=== PATIENT | female | born 1985 | race Caucasian/White ===

== ENCOUNTER 2022-09-12 00:13 | Emergency (ER) | payer MEDICAID, SELFPAY ==
--- NOTE | ~2022-09-12 | XR_ITS ---
EXAMINATION: XR CHEST CLINICAL INFORMATION: Cough COMPARISON: 02/03/2008 TECHNIQUE: Frontal view of the chest was obtained. FINDINGS: No significant abnormality is noted involving the heart, lungs, mediastinum, bony thorax or soft tissues. XR/XR chest 1V IMPRESSION: Unremarkable examination.
[2022-09-12 00:16] VITALS: BP 106/72; PULSE 78; RESP 22; TEMP 36.3; O2SAT 99; BMI 38.9
--- NOTE | 2022-09-12 00:23 | ECG_ITS ---
Test Reason : SOB Blood Pressure : / mmHG Vent. Rate : 064 BPM Atrial Rate : 064 BPM P-R Int : 164 ms QRS Dur : 084 ms QT Int : 398 ms P-R-T Axes : 040 031 015 degrees QTc Int : 410 ms Normal sinus rhythm with sinus arrhythmia Normal ECG No previous ECGs available Referred By: Generic ED Physician Electronically Signed By:AQUILINO JESUS MD
[2022-09-12 00:39] LABS: MANUAL DIFF FLAG NO
[2022-09-12 00:41] LABS: Basophils Percent Auto 0.4 % (0-2); Eosinophils Absolute Auto 0.3 X10*3/uL (0.0-0.4); Hematocrit 37.4 % (37.0-47.0); Imm Gran Abs Auto 0.03 X10*3/uL (0.00-0.03); Imm Gran Pct Auto 0.3 % (0.0-0.4); Lymphocytes Absolute Auto 3.1 X10*3/uL (1.2-4.9); Lymphocytes Percent Auto 27.6 % (20-40); Mean Corpuscular HGB Conc 34.8 g/dl (31.0-35.0); Mean Corpuscular Volume 83.5 fL (80.0-98.0); Monocytes Absolute Auto 0.4 X10*3/uL (0.1-1.2); Monocytes Percent Auto 3.8 % (2-11); Neutrophils Absolute Auto 7.3 x10*3/uL (2.0-8.3); Neutrophils Percent Auto 64.9 % (45-73); Platelet Count 280 X10*3/uL (160-400); Red Blood Count 4.48 X10*6/uL (4.20-5.50); Red Cell Distribution Width 12.8 % (11.0-16.0); White Blood Count 11.2 X10*3/uL (4.8-10.8)
[2022-09-12 00:56] LABS: Anion Gap 17 (12-20); Blood Urea Nitrogen 10 mg/dL (9-16); Calcium 9.2 mg/dL (8.4-10.2); Carbon Dioxide 23 mmol/L (22-29); Chloride 105 mmol/L (96-108); Creatinine Clr Calc Pharmacy 120.4; Estimated Glomerular Filt Rate > 60; Glucose Random 105 mg/dL (60-115); Potassium 3.6 mmol/L (3.3-5.1); Sodium 141 mmol/L (135-145)
[2022-09-12 01:00] LABS: COVID-19 Test Negative (Negative); IDNOW Serial# 16C4AD1C
[2022-09-12 01:02] LABS: B Type Natriuretic Peptide < 10 pg/mL (<100); Troponin-I High Sensitivity < 3.5 ng/L (<3.5-17.0)
--- NOTE | 2022-09-12 03:48 | ED_ITS ---
HPI - URI/Sore Throat General Chief Complaint: Upper Respiratory Symptoms Stated Complaint: Cough Time Seen by Provider: 09/12/22 03:47 Source: patient Mode of arrival: ambulatory Limitations: no limitations History of Present Illness HPI Narrative: Patient coughing for last 3- 4 days getting worse now no shortness of breath no fever or chills patient does have history of asthma. Patient cough is getting worse with mucoid phlegm patient is a smoker Related Data Previous Rx's Medication Instructions Recorded azithromycin 250 mg tablet 250 mg PO DAILY 4 days #4 tabs 09/12/22 (Zithromax) benzonatate 200 mg capsule 200 mg PO TID PRN cough #30 caps 09/12/22 prednisone 20 mg tablet 40 mg PO DAILY #10 tabs 09/12/22 Allergies Allergy/AdvReac Type Severity Reaction Status Date / Time No Known Allergies Allergy Unverified 09/12/22 00:16 [No Known Allergies*] Review of Systems Review of Systems: Yes all other systems are reviewed and are negative [facility] Social History Social History Advance Directives: No Advance Directives Information Provided: Yes Patient : No Physical Exam Vital Signs: Vital Signs: Last Vital Signs Temp 97.3 F 09/12/22 00:16 Pulse 61 09/12/22 04:00 Resp 22 H 09/12/22 00:16 BP 112/58 L 09/12/22 04:00 Pulse Ox 98 09/12/22 04:00 O2 Del Method 09/12/22 04:00 BMI result Body Mass Index 38.9 Appearance: Alert. Oriented X3. No acute distress. ENT: Pharynx normal. Oral Mucosa moist no erythema or exudate Neck: Normal inspection. Neck supple. CVS: Normal heart rate and rhythm. Pulses normal. Respiratory: No respiratory distress. Equal air entry bilateral, prolonged expiration Abdomen: Soft and nontender. Bowel sounds are present, no mass palpable, no CVA tenderness Skin: Skin warm and dry. Normal skin color. Normal skin turgor. Extremities: No lower extremity edema. No calf tenderness Neuro: Oriented X 3. MDM - URI/Sore Throat MDM Narrative Medical decision making narrative: Patient with dry cough and sore throat will do the strep test and check for RSV as patient 's grandson positive RSV Lab Data Attestation: I reviewed the patient's lab results. Result diagrams: 09/12/22 00:33 09/12/22 00:33 Labs: Lab Results 09/12/22 09/12/22 09/12/22 Range/Units 00:33 00:33 00:33 WBC 11.2 H (4.8-10.8) X10*3/uL RBC 4.48 (4.20-5.50) X10*6/uL Hgb 13.0 (12.0-16.0) g/dl Hct 37.4 (37.0-47.0) % MCV 83.5 (80.0-98.0) fL MCH 29.0 (27.0-33.0) pg MCHC 34.8 (31.0-35.0) g/dl RDW 12.8 (11.0-16.0) % Plt Count 280 (160-400) X10*3/uL MPV 10.0 (9.4-12.3) fL Immature Gran % (Auto) 0.3 (0.0-0.4) % Neut % (Auto) 64.9 (45-73) % Lymph % (Auto) 27.6 (20-40) % [place] % (Auto) 3.8 (2-11) % Eos % (Auto) 3.0 (0-4) % Baso % (Auto) 0.4 (0-2) % Lymph # (Auto) 3.1 (1.2-4.9) X10*3/uL [place] # (Auto) 0.4 (0.1-1.2) X10*3/uL Eos # (Auto) 0.3 (0.0-0.4) X10*3/uL Baso # (Auto) 0.0 (0.0-0.2) X10*3/uL Abs Immat Gran (auto) 0.03 (0.00-0.03) X10*3/uL Absolute Neuts (auto) 7.3 (2.0-8.3) x10*3/uL Absolute Nucleated RBC 0.000 (0.0-0.012) X10*3/uL Nucleated RBC % (auto) 0.0 (0.0-0.2) /100WBC Sodium 141 (135-145) mmol/L Potassium 3.6 (3.3-5.1) mmol/L Chloride 105 (96-108) mmol/L Carbon Dioxide 23 (22-29) mmol/L Anion Gap 17 (12-20) BUN 10 (9-16) mg/dL Creatinine 0.70 (0.5-1.4) mg/dL Estim Creat Clear Calc 120.4 Estimated GFR > 60 Random Glucose 105 (60-115) mg/dL Calcium 9.2 (8.4-10.2) mg/dL Troponin I High Sens < 3.5 (<3.5-17.0) ng/L B-Natriuretic Peptide < 10 (<100) pg/mL COVID-19 (CEDRIC) (Negative) COVID-19 Clin Com 09/12/22 Range/Units 00:33 WBC (4.8-10.8) X10*3/uL RBC (4.20-5.50) X10*6/uL Hgb (12.0-16.0) g/dl Hct (37.0-47.0) % MCV (80.0-98.0) fL MCH (27.0-33.0) pg MCHC (31.0-35.0) g/dl RDW (11.0-16.0) % Plt Count (160-400) X10*3/uL MPV (9.4-12.3) fL Immature Gran % (Auto) (0.0-0.4) % Neut % (Auto) (45-73) % Lymph % (Auto) (20-40) % [place] % (Auto) (2-11) % Eos % (Auto) (0-4) % Baso % (Auto) (0-2) % Lymph # (Auto) (1.2-4.9) X10*3/uL [place] # (Auto) (0.1-1.2) X10*3/uL Eos # (Auto) (0.0-0.4) X10*3/uL Baso # (Auto) (0.0-0.2) X10*3/uL Abs Immat Gran (auto) (0.00-0.03) X10*3/uL Absolute Neuts (auto) (2.0-8.3) x10*3/uL Absolute Nucleated RBC (0.0-0.012) X10*3/uL Nucleated RBC % (auto) (0.0-0.2) /100WBC Sodium (135-145) mmol/L Potassium (3.3-5.1) mmol/L Chloride (96-108) mmol/L Carbon Dioxide (22-29) mmol/L Anion Gap (12-20) BUN (9-16) mg/dL Creatinine (0.5-1.4) mg/dL Estim Creat Clear Calc Estimated GFR Random Glucose (60-115) mg/dL Calcium (8.4-10.2) mg/dL Troponin I High Sens (<3.5-17.0) ng/L B-Natriuretic Peptide (<100) pg/mL COVID-19 (CEDRIC) Negative (Negative) COVID-19 Clin Com See Note Discharge Plan Discharge Clinical Impression: Acute bronchitis Patient Disposition: Home, Self-Care Instructions: Acute Bronchitis (ED) Additional Instructions: Drink plenty of fluids Continue her albuterol inhaler and nebulizing treatment every 4-6 hours as needed Antibiotic as prescribed Cough drops as prescribed Follow with PCP if not better Prescriptions: New benzonatate 200 mg capsule 200 mg PO TID PRN (Reason: cough) Qty: 30 0RF prednisone 20 mg tablet 40 mg PO DAILY Qty: 10 0RF azithromycin [Zithromax] 250 mg tablet 250 mg PO DAILY 4 Days Qty: 4 0RF Rx Instructions: start on day 2 of therapy
[2022-09-12 04:00] VITALS: BP 112/58; PULSE 61; O2SAT 98
--- NOTE | 2022-09-12 05:41 | PC.NURSE ---
pt a&o, no respiratory distress or chest pain. respiratory treatment ordered.
[2022-09-12] MEDS: Albuterol/Iprat 2.5/0.5MG 3 ML AMPUL.NEB INHALE (05:52)
[2022-09-12] MEDS: Benzonatate 100 MG CAPSULE 200 MG PO (06:12)
--- NOTE | 2022-09-12 06:14 | PC.NURSE ---
medicated per Mar.
[2022-09-12] MEDS: predniSONE 20 MG TABLET 40 MG PO (06:22)
[2022-09-12] MEDS: Azithromycin 500 MG TABLET PO (06:23)
--- NOTE | 2022-09-12 06:29 | PC.NURSE ---
medicated per Mar.
[2022-09-12 06:30] VITALS: O2SAT 97
--- NOTE | 2022-09-12 06:31 | PC.NURSE ---
No sign of respiratory distress. reviewed discharge instructions with pt. Pt verbalized understanding.
== END 2022-09-12 06:31 | disposition home or self-care (01) ==
PROVIDERS: Emergency Provider Internal Medicine
DX: J20.9 Acute bronchitis, unspecified (principal); F17.200 Nicotine dependence, unspecified, uncomplicated; Z20.822 Contact with and (suspected) exposure to COVID-19
CPT/HCPCS: 36415; 71045; 80048; 83880; 84484; 85025; 87635; 93005; 94640; 99284; 99285

== ENCOUNTER 2024-05-06 10:44 | Emergency (ER) | payer MEDICAID, SELFPAY ==
--- NOTE | ~2024-05-06 | US_ITS ---
EXAMINATION: US VENOUS ULTRASOUND WITH DOPPLER LOWER EXTREMITY, LEFT CLINICAL INFORMATION: Calf pain and swelling COMPARISON: None available. TECHNIQUE: Ultrasound of the deep veins is performed from the hip to the calf with compression sonography and color and pulse Doppler assessment. Spectral analysis with color-flow imaging is performed. FINDINGS: There is normal venous compression and respiratory variation and augmented flow. The visualized common femoral vein, superficial femoral vein, profunda femoral vein, popliteal vein, and the trifurcation region shows no evidence of deep venous thrombosis. There is no significant popliteal fossa cyst. No focal soft tissue lesion in the medial calf. If the patient's symptoms persist, followup ultrasound in 5 days 7 days might be of value to exclude proximal propagation from a non-visualized calf vein. US/US venous duplex LE IMPRESSION: No DVT demonstrated in the left lower extremity.
--- NOTE | 2024-05-06 11:18 | ED.GENADULT ---
HPI - General Adult General Chief complaint: General Medical Stated complaint: Bruising/pain L leg no injury, cyst R cheek Time Seen by Provider: 05/06/24 12:52 Source: patient Mode of arrival: ambulatory Limitations: no limitations History of Present Illness ED Provider: Rema Lee NP [facility] narrative: Patient is a 39-year-old female presenting to the emergency department with complaint of scattered bruises to left leg for the past month. Reports left lower leg calf pain and swelling. No warmth or erythema. Not on OCPs. Also complaining of a bump to right submandibular area for months. Painful with palpation. States was initially a pimple which she squeezed. Denies fever. Denies drainage. Does not have a PCP. MD complaint: leg bruising Onset (ago): month(s) Location: face, left and lower extremity Quality: aching Associated symptoms: denies other symptoms Treatments prior to arrival: none Related Data Previous Rx's ?Medication ?Instructions ?Recorded azithromycin 250 mg tablet 250 mg PO DAILY 4 days #4 tabs 09/12/22 (Zithromax) benzonatate 200 mg capsule 200 mg PO TID PRN cough #30 caps 09/12/22 prednisone 20 mg tablet 40 mg (2 x 20 mg) PO DAILY #10 tabs 09/12/22 Allergies Allergy/AdvReac Type Severity Reaction Status Date / Time No Known Allergies Allergy Verified 05/06/24 11:20 [No Known Allergies*] Review of Systems Review of Systems: As per HPI. Yes all other systems are reviewed and are negative Constitutional: Constitutional: Reports as per HPI [facility] Social History Social History Advance Directives: No Advance Directives Information Provided: Yes Physical Exam ED Vital Signs: Vital Signs - 24 hr 05/06/24 11:19 Temperature 97.8 F Pulse Rate 71 Respiratory Rate 16 Blood Pressure 117/70 Pulse Oximetry 98 Oxygen Delivery Method Room Air BMI result Body Mass Index 35.7 Vital signs have been reviewed and appear to be correct. Blood pressure normal. Heart rate normal. Respiratory rate normal. Temperature normal. Oxygen saturation normal. Const General: cooperative, healthy appearing and no acute distress Orientation/consciousness: oriented to person, oriented to place, oriented to time and patient oriented x3 Limitations: no limitations HENMT Head: Yes normocephalic and Yes atraumatic Ears: external ears normal General nose exam: Normal external nose present Face and sinus: Yes face symmetric Face images: 1. flesh colored firm, irregular area at edge of mandible, no fluctuance or erythema Mouth: oropharynx normal and moist mucous membranes Throat: Yes uvula midline Eyes Pupils: Equal, round and reactive pupils present Neck Neck: Yes normal visual inspection and Yes supple Resp Effort & Inspection: normal respiratory effort and able to speak in complete sentences Auscultation: clear to auscultation bilaterally Cardio Rate: regular rate Rhythm: regular rhythm Heart sounds: S1 normal heart sound present and S2 normal heart sound present GI Palpation (GI): Soft to palpation and nontender Auscultation: normoactive bowel sounds General: Yes no CVA tenderness Back/Spine/Pelvis Back: no CVA tenderness Skin General skin exam: elasticity normal and turgor normal Neuro General: oriented to person, oriented to place, oriented to time, patient oriented x3, moves all extremities, no focal motor deficits and CN's II-XI intact bilaterally Cranial nerves: Yes Equal, round and reactive pupils present Cognition (Neuro): normal cognition Extrem General: Yes full ROM, Yes capillary refill normal, Yes normal exam except as noted and Yes no pedal edema Left lower extremity: full ROM, normal capillary refill, lower leg Details: tenderness Location: of the posterior calf and localized swelling Location: of the proximal lower leg (mild); no erythema and no unusual warmth and foot Details: vascular exam Details: dorsalis pedis pulse present and posterior tibial pulse present Upper/lower leg/hip images: 1. bruise 2. bruise 3. bruise Psych Mental Status: mental status grossly normal Affect: normal affect Thought process: Normal thought process present Medical Decision Making Medical Decision Making MDM Narrative: Patient is a 39-year-old female presenting to the emergency department with complaint of scattered bruises to left leg for the past month. On exam patient is awake, A+Ox3, VS WNL, afebrile, normal neurological exam without focal deficits, physical exam findings as above. Given reported symptoms and physical exam findings, initial differential includes dvt, varicose veins, abscess, scar tissue. Labs unremarkable. Ultrasound notable for no evidence of DVT. My interpretation is in agreement with the radiologist's interpretation. Discussed with patient that areas of bruising are likely due to superficial varicose veins. Discussed with patient that area of concern on face is likely scar tissue related to her attempting to express a pustule. Advised patient to attempt to establish care with a primary care provider and resources provided. Will also refer to general surgery for evaluation of scar tissue to face. Return precautions discussed. Patient verbalized understanding of and agreement with plan. Differential Diagnosis Differential Diagnoses: The differential diagnosis associated with the presentation includes As per MDM. Lab Data [facility] Lab Attestation statement: I reviewed the patient's lab results. As per MDM. 05/06/24 11:30 05/06/24 11:30 Labs: Lab Results 05/06/24 Range/Units 11:30 WBC 8.7 (4.8-10.8) X10*3/uL RBC 4.89 (4.20-5.50) X10*6/uL Hgb 14.3 (12.0-16.0) g/dl Hct 41.2 (37.0-47.0) % MCV 84.3 (80.0-98.0) fL MCH 29.2 (27.0-33.0) pg MCHC 34.7 (31.0-35.0) g/dl RDW 12.9 (11.0-16.0) % Plt Count 281 (160-400) X10*3/uL MPV 10.0 (9.4-12.3) fL Immature Gran % (Auto) 0.2 (0.0-0.4) % Neut % (Auto) 69.3 (45-73) % Lymph % (Auto) 23.7 (20-40) % [place] % (Auto) 5.0 (2-11) % Eos % (Auto) 1.6 (0-4) % Baso % (Auto) 0.2 (0-2) % Lymph # (Auto) 2.1 (1.2-4.9) X10*3/uL [place] # (Auto) 0.4 (0.1-1.2) X10*3/uL Eos # (Auto) 0.1 (0.0-0.4) X10*3/uL Baso # (Auto) 0.0 (0.0-0.2) X10*3/uL Abs Immat Gran (auto) 0.02 (0.00-0.03) X10*3/uL Absolute Neuts (auto) 6.0 (2.0-8.3) x10*3/uL Absolute Nucleated RBC 0.000 (0.0-0.012) X10*3/uL Nucleated RBC % (auto) 0.0 (0.0-0.2) /100WBC PT 11.5 (11.1-13.3) SEC INR 0.9 (0.9-1.1) Sodium 140 (135-145) mmol/L Potassium 3.9 (3.3-5.1) mmol/L Chloride 106 (96-108) mmol/L Carbon Dioxide 29 (22-29) mmol/L Anion Gap 9 L (12-20) BUN 12 (9-16) mg/dL Creatinine 0.70 (0.5-1.4) mg/dL Estim Creat Clear Calc 112.6 Estimated GFR > 60 Random Glucose 89 (60-115) mg/dL Calcium 9.7 (8.4-10.2) mg/dL Total Bilirubin 0.3 (0.0-1.0) mg/dL AST 17 (5-31) U/L ALT 20 (0-31) U/L Alkaline Phosphatase 88 (39-117) U/L Total Protein 7.3 (6.5-8.0) g/dL Albumin 4.3 (3.5-5.0) g/dL Beta HCG, Quant < 2 mIU/mL Independent Interpretation I performed an independent interpretation of an: Ultrasound Interpretation: No evidence of DVT left lower extremity. Radiology Impression Discussion of test interpretation with radiology: I have reviewed the radiologist's reading. Radiologist Impression: US/US venous duplex LE LT IMPRESSION: No DVT demonstrated in the left lower extremity. External Record Review External record reviewed: Inpatient record, Office record and Outpatient record Discharge Plan Discharge Clinical Impression: Superficial bruising of lower leg Patient Disposition: Home, Self-Care Instructions: Contusion in Adults (ED) Additional Instructions: You were evaluated in the emergency department today for bruising and pain to your left lower leg. Your labs are reassuring. Your ultrasound did not show evidence of a blood clot in your leg. You should attempt to establish care with a primary care provider as soon as possible. Return to the emergency department if you develop increasing pain, fever, new redness or swelling to your leg, difficulty swallowing or any other concerning symptoms. Prescriptions: No Action benzonatate 200 mg capsule 200 mg PO TID PRN (Reason: cough) Qty: 30 0RF prednisone 20 mg tablet 40 mg PO DAILY Qty: 10 0RF azithromycin [Zithromax] 250 mg tablet 250 mg PO DAILY 4 Days Qty: 4 0RF Rx Instructions: start on day 2 of therapy Referrals: [facility] [Provider Group] Interventions: ED Discharge Assessment Last Done: 05/06/24 12:53 Print Language: Luxembourger
[2024-05-06 11:19] VITALS: BP 117/70; PULSE 71; RESP 16; TEMP 36.6; O2SAT 98; BMI 35.7
[2024-05-06 11:34] LABS: MANUAL DIFF FLAG NO
[2024-05-06 11:36] LABS: Basophils Percent Auto 0.2 % (0-2); Eosinophils Absolute Auto 0.1 X10*3/uL (0.0-0.4); Eosinophils Percent Auto 1.6 % (0-4); Hematocrit 41.2 % (37.0-47.0); Hemoglobin 14.3 g/dl (12.0-16.0); Imm Gran Abs Auto 0.02 X10*3/uL (0.00-0.03); Imm Gran Pct Auto 0.2 % (0.0-0.4); Lymphocytes Absolute Auto 2.1 X10*3/uL (1.2-4.9); Lymphocytes Percent Auto 23.7 % (20-40); Mean Corpuscular HGB Conc 34.7 g/dl (31.0-35.0); Mean Corpuscular Hemoglobin 29.2 pg (27.0-33.0); Mean Corpuscular Volume 84.3 fL (80.0-98.0); Monocytes Absolute Auto 0.4 X10*3/uL (0.1-1.2); Neutrophils Percent Auto 69.3 % (45-73); Platelet Count 281 X10*3/uL (160-400); Red Blood Count 4.89 X10*6/uL (4.20-5.50); Red Cell Distribution Width 12.9 % (11.0-16.0); White Blood Count 8.7 X10*3/uL (4.8-10.8)
[2024-05-06 11:47] LABS: INTERNATIONAL NORM RATIO 0.9 (0.9-1.1); Prothrombin Time 11.5 SEC (11.1-13.3)
[2024-05-06 11:53] LABS: Alanine Aminotransferase 20 U/L (0-31); Albumin Level 4.3 g/dL (3.5-5.0); Alkaline Phosphatase 88 U/L (39-117); Anion Gap 9 (12-20); Aspartate Amino Transferase 17 U/L (5-31); Bilirubin Total 0.3 mg/dL (0.0-1.0); Blood Urea Nitrogen 12 mg/dL (9-16); Calcium 9.7 mg/dL (8.4-10.2); Carbon Dioxide 29 mmol/L (22-29); Chloride 106 mmol/L (96-108); Creatinine Clr Calc Pharmacy 112.6; Estimated Glomerular Filt Rate > 60; Glucose Random 89 mg/dL (60-115); Potassium 3.9 mmol/L (3.3-5.1); Sodium 140 mmol/L (135-145); Total Protein 7.3 g/dL (6.5-8.0)
[2024-05-06 11:58] LABS: HCG Quantitative < 2 mIU/mL
[2024-05-06 12:53] VITALS: BP 117/70; PULSE 71; RESP 16; TEMP 36.6; O2SAT 98
== END 2024-05-06 13:03 | disposition home or self-care (01) ==
PROVIDERS: Registered Nurse Emergency; Emergency Provider Emergency Medicine Emergency Medical Services
DX: M79.662 Pain in left lower leg (principal); R58 Hemorrhage, not elsewhere classified; M79.89 Other specified soft tissue disorders
CPT/HCPCS: 36415; 80053; 84702; 85025; 85610; 93971; 99282; 99284

== ENCOUNTER 2024-09-02 11:54 | Emergency (ER) | payer MEDICAID, SELFPAY ==
[2024-09-02 12:34] VITALS: BP 126/57; PULSE 77; RESP 18; TEMP 36.7; O2SAT 97; BMI 31.1
--- NOTE | 2024-09-02 12:39 | ED_ITS ---
HPI - General Adult General Chief complaint: Upper Respiratory Symptoms Stated complaint: cough-daughter whooping cough+ Time Seen by Provider: 09/02/24 12:38 Source: patient Mode of arrival: ambulatory Limitations: no limitations History of Present Illness ED Provider: Reed Villarreal HPI narrative: 39 yold female with pmh of Asthma presents to the ED for coughing body aches nasal congestion since for couple of days. Patient states her daughter was diagnosed with whooping cough and now patient herself is sick. Patient states wheezing. Patient denies any shortness of breath or chest pain. Patient denies any leg swelling, calf pain, coughing up blood, recent long travel, recent surgery, history of blood clots, or any pleurisy. Related Data Previous Rx's ?Medication ?Instructions ?Recorded azithromycin 250 mg tablet 250 mg PO DAILY 4 days #4 tabs 09/12/22 (Zithromax) benzonatate 200 mg capsule 200 mg PO TID PRN cough #30 caps 09/12/22 prednisone 20 mg tablet 40 mg (2 x 20 mg) PO DAILY #10 tabs 09/12/22 albuterol sulfate 90 mcg/actuation 2 puff inhalation Q4-6H PRN 09/02/24 aerosol inhaler shortness of breath or wheezing #8.5 grams azithromycin 250 mg tablet See Rx Instructions PO .COMPLEX #6 09/02/24 tabs benzonatate 200 mg capsule 200 mg PO TID PRN cough 5 days #15 09/02/24 caps prednisone 20 mg tablet 40 mg (2 x 20 mg) PO DAILY 5 days 09/02/24 #10 tabs Allergies Allergy/AdvReac Type Severity Reaction Status Date / Time No Known Allergies Allergy Verified 09/02/24 12:35 [No Known Allergies*] Review of Systems Review of Systems: COughing, bodyaches, chills, nasal congestion Yes all other systems are reviewed and are negative PMFSH Social History Social History Advance Directives: No Physical Exam ED Vital Signs: Vital Signs - 24 hr 09/02/24 12:34 09/02/24 12:54 Temperature 98.0 F 98.0 F Pulse Rate 77 77 Respiratory Rate 18 18 Blood Pressure 126/57 L 126/57 L Pulse Oximetry 97 97 Oxygen Delivery Method Room Air BMI result Body Mass Index 31.1 Const General: cooperative, healthy appearing, comfortable, no acute distress, well developed, alert, awake and Physically active Orientation/consciousness: patient oriented x3 [facility] Head: Yes normal to inspection, Yes No palpable skull fracture present, Yes normocephalic and Yes atraumatic Ears: hearing grossly normal bilaterally, external ears normal, TM's normal bilaterally, TM normal on the right, TM normal on the left, EAC's normal, mastoids normal and no periauricular adenopathy Throat: Yes posterior oropharynx normal, Yes tonsils normal and Yes uvula midline Eyes General: appearance normal, both eyes and all related structures Neck Neck: Yes normal visual inspection, Yes full ROM, Yes no lymphadenopathy, Yes no meningeal signs, Yes trachea midline, Yes supple, No anterior neck swelling and No tender Chest Chest palpation & inspection: normal inspection of the chest and normal palpation of entire chest wall Resp Effort & Inspection: normal respiratory effort and able to speak in complete sentences Auscultation: wheezes expiratory wheezes (slight) Cardio Jugular venous distension: no JVD Heart sounds: S1 normal heart sound present and S2 normal heart sound present GI Inspection: Yes normal to inspection Palpation (GI): Soft to palpation, not firm, nontender, no guarding and not rigid General: No CVA tenderness and Yes no CVA tenderness Back/Spine/Pelvis Back: no CVA tenderness, No CVA tenderness and No back tenderness Skin General skin exam: no rashes or lesions noted, elasticity normal and turgor normal Neuro General: patient oriented x3, gait normal, tone normal, moves all extremities, Normal light touch and pain sensation, no meningeal signs, no focal motor deficits, CN's II-XI intact bilaterally and normal sensation to monofilament Extrem General: Yes normal to inspection, Yes full ROM and Yes capillary refill normal Psych Appearance: grossly normal, well kempt and not disheveled Medical Decision Making Medical Decision Making MDM Narrative: 39 yold female with asthma presents to the ED for coughing, shortness of breath, and wheezing. Patient states daughter was just diagnosed with whooping cough and now she is sick herself. Patient states no recent travel outside the country. Patient denies any pleurisy. Negative for any lower extremity swelling, pitting edema, calf tenderness. Lungs positive for slight wheezing. Will discharge with albuterol inhaler which patient ran out of and steroids with coughing medication antibiotics. According up-to-date pertussis should be treated with azithromycin. Not suspecting myocardial infarction, pericarditis, PE, hemothorax, pneumothorax, CHF, rib fractures, or respiratory distress. Patient is explained worrisome signs and informed to return to the ED immediately Differential Diagnosis Differential Diagnoses: The differential diagnosis associated with the presentation includes (Pneumonia, COVID, SARS, influenza, strep) Admission/Observation Consideration of admission/observation: Escalation of care including admission/observation considered Independent Historian Clinical information obtained from an independent historian. History obtained from or confirmed by: Other (Patient) External Record Review External record reviewed: Other (Prior visits) Prescription Management I considered prescription management with: Antibiotic and Other (Prednisone, albuterol, Tessalon Perles) Discharge Plan Discharge Clinical Impression: Bronchitis Patient Disposition: Home, Self-Care Instructions: Acute Bronchitis (ED) Additional Instructions: Recommend follow-up with primary care provider. Return to the ED immediately for any chest pain, shortness of breath, weakness, leg swelling, calf pain, coughing up blood, fever, chills, or any other concerning symptoms. Prescriptions: New prednisone 20 mg tablet 40 mg PO DAILY 5 Days Qty: 10 0RF azithromycin 250 mg tablet See Rx Instructions .ROUTE .COMPLEX Qty: 6 0RF Rx Instructions: For 250 mg dose pack: take 500 mg today (day 1), then 250 mg for 4 days (days 2-5) benzonatate 200 mg capsule 200 mg PO TID PRN (Reason: cough) 5 Days Qty: 15 0RF albuterol sulfate 90 mcg/actuation HFA aerosol inhaler 2 puff inhalation Q4-6H PRN (Reason: shortness of breath or wheezing) Qty: 8.5 0RF No Action benzonatate 200 mg capsule 200 mg PO TID PRN (Reason: cough) Qty: 30 0RF prednisone 20 mg tablet 40 mg PO DAILY Qty: 10 0RF azithromycin [Zithromax] 250 mg tablet 250 mg PO DAILY 4 Days Qty: 4 0RF Rx Instructions: start on day 2 of therapy Stand Alone Forms: Work/School Release Interventions: ED Discharge Assessment Last Done: 09/02/24 12:54 Discharge Date/Time: 09/02/24 12:54 Print Language: Yoruba
[2024-09-02 12:54] VITALS: BP 126/57; PULSE 77; RESP 18; TEMP 36.7; O2SAT 97
== END 2024-09-02 12:54 | disposition home or self-care (01) ==
PROVIDERS: Emergency Provider Emergency Medicine
DX: J40 Bronchitis, not specified as acute or chronic (principal)
CPT/HCPCS: 99282; 99283

== ENCOUNTER 2024-10-15 08:43 | Emergency (ER) | payer MEDICAID, SELFPAY ==
--- NOTE | ~2024-10-15 | XR_ITS ---
EXAMINATION: XR CHEST CLINICAL INFORMATION: cough COMPARISON: X-ray dated September 12, 2022 TECHNIQUE: 2 views of the chest were obtained. FINDINGS: No consolidation, pleural effusion or pneumothorax. Cardiomediastinal silhouette is normal. Osseous structures are intact. XR/XR chest 2V IMPRESSION: No acute airspace disease. Electronically signed by: Garcia Miles MD 10/15/2024 09:06 AM [facility]
[2024-10-15 08:45] VITALS: BP 120/91; PULSE 99; RESP 20; TEMP 36.3; O2SAT 95; BMI 35.3
[2024-10-15 09:52] LABS: Influenza A PCR NEGATIVE (Negative); Influenza B PCR NEGATIVE (Negative); Resp Syncy Virus RNA Qual PCR NEGATIVE (Negative); SARS COV2 PCR INHOUSE NEGATIVE (Negative)
--- NOTE | 2024-10-15 09:55 | ED.URI ---
HPI - URI/Sore Throat General Chief Complaint: Upper Respiratory Symptoms Stated Complaint: Bronchitis Time Seen by Provider: 10/15/24 09:04 Source: patient and RN notes reviewed Mode of arrival: ambulatory Limitations: no limitations History of Present Illness ED Provider: Karley Carpenter PA-C HPI Narrative: This is a 39-year-old female who presents emergency department with complaints of cough, congestion x 5 days. Patient reports that she has also had associated shortness of the breath and chest tightness. She states that the chest tightness worsens at night. She denies any chest pain, palpitations. No fevers or chills. No abdominal pain, nausea, vomiting or diarrhea. She had bronchitis last month and was treated with a course of antibiotics, and prednisone and states that her symptoms got better. She is a smoker, however states that since her symptoms, she has been smoking last, she has been smoking a pack of cigarettes per week. Denies any recent travel, surgery, hospitalizations. No hemoptysis. No history of blood clots, or cancer history. She is not on control. No other complaints or concerns at this time. MD elicited complaint: cough Exacerbating factors: nothing Relieving factors: nothing Associated symptoms: denies other symptoms Treatments prior to arrival: none Related Data Previous Rx's ?Medication ?Instructions ?Recorded azithromycin 250 mg tablet 250 mg PO DAILY 4 days #4 tabs 09/12/22 (Zithromax) benzonatate 200 mg capsule 200 mg PO TID PRN cough #30 caps 09/12/22 prednisone 20 mg tablet 40 mg (2 x 20 mg) PO DAILY #10 tabs 09/12/22 albuterol sulfate 90 mcg/actuation 2 puff inhalation Q4-6H PRN 09/02/24 aerosol inhaler shortness of breath or wheezing #8.5 grams azithromycin 250 mg tablet See Rx Instructions PO .COMPLEX #6 09/02/24 tabs benzonatate 200 mg capsule 200 mg PO TID PRN cough 5 days #15 09/02/24 caps prednisone 20 mg tablet 40 mg (2 x 20 mg) PO DAILY 5 days 09/02/24 #10 tabs doxycycline hyclate 100 mg capsule 100 mg PO BID 5 days #10 caps 10/15/24 prednisone 20 mg tablet 40 mg (2 x 20 mg) PO DAILY 5 days 10/15/24 #10 tabs Allergies Allergy/AdvReac Type Severity Reaction Status Date / Time No Known Allergies Allergy Verified 10/15/24 08:48 [No Known Allergies*] Review of Systems Review of Systems: Yes all other systems are reviewed and are negative Constitutional: Constitutional: Reports as per [facility] Social History Social History Advance Directives: No Advance Directives Information Provided: Yes Do you have a plan to hurt others: No Plan Physical Exam Vital Signs: Vital Signs: Last Vital Signs Temp 99.6 F 10/15/24 12:28 Pulse 81 10/15/24 12:28 Resp 18 10/15/24 12:28 BP 110/62 10/15/24 12:28 Pulse Ox 97 10/15/24 12:28 O2 Del Method Room Air 10/15/24 12:28 BMI result Body Mass Index 35.3 Const: General: cooperative, comfortable and no acute distress Orientation/consciousness: patient oriented x3 Limitations: no limitations HEENT: Head: Yes normal to inspection, Yes normocephalic and Yes atraumatic Ears: hearing grossly normal bilaterally General nose exam: Normal external nose present Face and sinus: Yes normal facial exam Mouth: Normal oral and palatal mucosa present, oropharynx normal and moist mucous membranes Throat: Yes posterior oropharynx normal Eyes: General: appearance normal, both eyes and all related structures Eyelids: Yes eyelids normal Conjunctivae: conjunctivae normal Sclerae: sclerae normal Pupils: Equal, round and reactive pupils present EOM: EOMs intact bilaterally Neck: Neck: Yes normal visual inspection, Yes full ROM and Yes no lymphadenopathy Lymphatic: no lymphadenopathy noted Chest: Chest palpation & inspection: normal inspection of the chest Resp: Other: Faint expiratory wheeze noted in the right lower base, otherwise lungs are clear to auscultation bilaterally. Effort & Inspection: normal respiratory effort, able to speak in complete sentences, not labored, no nasal flaring, no pursed lip breathing and no use of accessory muscles Cardio: Rate: regular rate Rhythm: regular rhythm Heart sounds: S1 normal heart sound present and S2 normal heart sound present GI: Inspection: Yes normal to inspection Skin: General skin exam: no rashes or lesions noted Trauma: no lacerations or abrasions Wounds: no wounds Neuro: General: patient oriented x3 and moves all extremities Cranial nerves: Yes Equal, round and reactive pupils present Extrem: Other: No calf tenderness, no pitting edema. General: Yes normal to inspection Right upper extremity: normal to inspection Left upper extremity: normal to inspection Right lower extremity: normal to inspection Left lower extremity: normal to inspection Medications Administered Discontinued Medications Generic Name Dose Route Start Last Admin Trade Name Regulo PRN Reason Stop Dose Admin Albuterol Sulfate 2.5 mg/ 5 mg 10/15/24 10:23 10/15/24 10:29 Albuterol Sulfate 2.5 mg INHALE 10/15/24 10:24 5 mg ONCE ONE Administration Medical Decision Making Medical Decision Making [facility] Narrative: This is a 39-year-old female, with a history of asthma, who presents emergency department with complaints of cough, shortness for breath and chest tightness. On arrival, vital signs within normal limits. She is speaking full sentences under no acute distress. Faint expiratory wheeze noted at the right lower base. She was a smoker. She is afebrile. She has had cold-like symptoms for the last 5 days. She was also reporting some shortness for breath upon exertion. She is not hypoxic or tachycardic. She has no history of PE. No recent travel, surgery, hospitalizations. No hemoptysis. No pleuritic chest pain to suggest PE. Differential diagnoses include URI, pneumonia, bronchitis. EKG was performed revealing normal sinus rhythm at a ventricular rate of 79 beats per minute, no ST elevation or depression. Viral swabs are negative. Chest x-ray does not show a pneumonia. Symptoms consistent with acute bronchitis. Will treat with a course of prednisone, and antibiotics. She was previously on azithromycin last month therefore we will try doxycycline. Stressed the urgency of following up with the primary care physician as she should be closely monitor to ensure resolution of her symptoms as well as management. Differential Diagnosis Differential Diagnoses: The differential diagnosis associated with the presentation includes See above Admission/Observation Consideration of admission/observation: Escalation of care including admission/observation considered Escalation of care including admission/observation considered however given workup today not warranted at this time. Lab Data [facility] Lab Attestation statement: I reviewed the patient's lab results. No leukocytosis, stable H&H, chemistry within normal limits. Troponin less than 2.7, viral swabs negative. 10/15/24 10:33 10/15/24 10:33 Labs: Lab Results 10/15/24 10/15/24 Range/Units 08:55 10:33 WBC 8.8 (4.8-10.8) X10*3/uL RBC 4.93 (4.20-5.50) X10*6/uL Hgb 14.5 (12.0-16.0) g/dl Hct 40.2 (37.0-47.0) % MCV 81.5 (80.0-98.0) fL MCH 29.4 (27.0-33.0) pg MCHC 36.1 H (31.0-35.0) g/dl RDW 12.6 (11.0-16.0) % Plt Count 270 (160-400) X10*3/uL MPV 9.9 (9.4-12.3) fL Immature Gran % (Auto) 0.3 (0.0-0.4) % Neut % (Auto) 61.8 (45-73) % Lymph % (Auto) 28.1 (20-40) % [place] % (Auto) 6.3 (2-11) % Eos % (Auto) 3.2 (0-4) % Baso % (Auto) 0.3 (0-2) % Lymph # (Auto) 2.5 (1.2-4.9) X10*3/uL [place] # (Auto) 0.6 (0.1-1.2) X10*3/uL Eos # (Auto) 0.3 (0.0-0.4) X10*3/uL Baso # (Auto) 0.0 (0.0-0.2) X10*3/uL Abs Immat Gran (auto) 0.03 (0.00-0.03) X10*3/uL Absolute Neuts (auto) 5.5 (2.0-8.3) x10*3/uL Absolute Nucleated RBC 0.000 (0.0-0.012) X10*3/uL Nucleated RBC % (auto) 0.0 (0.0-0.2) /100WBC Sodium 138 (135-145) mmol/L Potassium 3.4 (3.3-5.1) mmol/L Chloride 108 (96-108) mmol/L Carbon Dioxide 22 (22-29) mmol/L Anion Gap 11 L (12-20) BUN 10 (9-16) mg/dL Creatinine 0.68 (0.5-1.4) mg/dL Estim Creat Clear Calc 115.3 Estimated GFR > 60 Random Glucose 95 (60-115) mg/dL Calcium 9.3 (8.4-10.2) mg/dL Magnesium 2.1 (1.6-2.6) mg/dL Total Bilirubin 0.4 (0.0-1.0) mg/dL Direct Bilirubin 0.1 (0.0-0.5) mg/dL AST 30 (5-31) U/L ALT 37 H (0-31) U/L Alkaline Phosphatase 66 (39-117) U/L Troponin I High Sens < 2.7 (<3.5-17.0) ng/L B-Natriuretic Peptide < 10 (<100) pg/mL Total Protein 7.2 (6.5-8.0) g/dL Albumin 4.1 (3.5-5.0) g/dL Influenza Type A (PCR) NEGATIVE (Negative) Influenza Type B (PCR) NEGATIVE (Negative) RSV RNA Qual (PCR) NEGATIVE (Negative) SARS-CoV-2 RNA (RT-PCR) NEGATIVE (Negative) Independent Interpretation I performed an independent interpretation of an: EKG Interpretation: EKG normal sinus rhythm at a ventricular rate of 79 beats per minute, PA interval 166, QT QTC 376/431. Radiology Impression Discussion of test interpretation with radiology: I have reviewed the radiologist's reading. Radiologist Impression: XR/XR chest 2V IMPRESSION: No acute airspace disease. Electronically signed by: Garcia Miles MD 10/15/2024 09:06 AM [facility] Dictated By: Garcia Henriquez MD Discharge Plan Discharge Clinical Impression: Bronchitis Patient Disposition: Home, Self-Care Instructions: Acute Bronchitis (ED) Additional Instructions: You were seen in the emergency department due to cough. You have bronchitis. This often can be because of a virus however given your symptoms, we will treat you with antibiotics. Please take full course of antibiotics even if you are feeling better. Because you were just on azithromycin we are trying a different medication called doxycycline. Please take this as prescribed. Finish the entire course even if your symptoms improve. Take prednisone for the next 5 days as this will help decrease inflammation. Alternate between ibuprofen and Tylenol as needed for pain and symptoms. Use albuterol inhaler as needed for symptoms. You need to follow-up with the primary care physician. If any new or worsening symptoms occur including but not limited to chest pain, shortness for breath, worsening symptoms, please seek emergent care. Prescriptions: New doxycycline hyclate 100 mg capsule 100 mg PO BID 5 Days Qty: 10 0RF prednisone 20 mg tablet 40 mg PO DAILY 5 Days Qty: 10 0RF No Action benzonatate 200 mg capsule 200 mg PO TID PRN (Reason: cough) Qty: 30 0RF prednisone 20 mg tablet 40 mg PO DAILY Qty: 10 0RF azithromycin [Zithromax] 250 mg tablet 250 mg PO DAILY 4 Days Qty: 4 0RF Rx Instructions: start on day 2 of therapy prednisone 20 mg tablet 40 mg PO DAILY 5 Days Qty: 10 0RF azithromycin 250 mg tablet See Rx Instructions .ROUTE .COMPLEX Qty: 6 0RF Rx Instructions: For 250 mg dose pack: take 500 mg today (day 1), then 250 mg for 4 days (days 2-5) benzonatate 200 mg capsule 200 mg PO TID PRN (Reason: cough) 5 Days Qty: 15 0RF albuterol sulfate 90 mcg/actuation HFA aerosol inhaler 2 puff inhalation Q4-6H PRN (Reason: shortness of breath or wheezing) Qty: 8.5 0RF Referrals: [facility] [Physician] - Interventions: ED Discharge Assessment Last Done: 10/15/24 12:28 Discharge Date/Time: 10/15/24 12:29 Print Language: Tajik
--- NOTE | 2024-10-15 10:07 | ECG_ITS ---
Test Reason : SOB Blood Pressure : / mmHG Vent. Rate : 079 BPM Atrial Rate : 079 BPM P-R Int : 166 ms QRS Dur : 084 ms QT Int : 376 ms P-R-T Axes : 048 033 015 degrees QTc Int : 431 ms Normal sinus rhythm Normal ECG When compared with ECG of 12-SEP-2022 00:25, No significant change was found Referred By: Karley Carpenter Electronically Signed By:LAKSHMI BLEDSOE MD
[2024-10-15 10:24] VITALS: PULSE 92; O2SAT 96
[2024-10-15] MEDS: Albuterol Sulfate 2.5 MG, Albuterol Sulfate (0.083%) 2.5 MG 5 MG INHALE (10:29)
[2024-10-15 10:39] LABS: MANUAL DIFF FLAG NO
[2024-10-15 10:42] LABS: Basophils Percent Auto 0.3 % (0-2); Eosinophils Absolute Auto 0.3 X10*3/uL (0.0-0.4); Eosinophils Percent Auto 3.2 % (0-4); Hematocrit 40.2 % (37.0-47.0); Hemoglobin 14.5 g/dl (12.0-16.0); Imm Gran Abs Auto 0.03 X10*3/uL (0.00-0.03); Imm Gran Pct Auto 0.3 % (0.0-0.4); Lymphocytes Absolute Auto 2.5 X10*3/uL (1.2-4.9); Lymphocytes Percent Auto 28.1 % (20-40); Mean Corpuscular HGB Conc 36.1 g/dl (31.0-35.0); Mean Corpuscular Hemoglobin 29.4 pg (27.0-33.0); Mean Corpuscular Volume 81.5 fL (80.0-98.0); Mean Platelet Volume 9.9 fL (9.4-12.3); Monocytes Absolute Auto 0.6 X10*3/uL (0.1-1.2); Monocytes Percent Auto 6.3 % (2-11); Neutrophils Absolute Auto 5.5 x10*3/uL (2.0-8.3); Neutrophils Percent Auto 61.8 % (45-73); Platelet Count 270 X10*3/uL (160-400); Red Blood Count 4.93 X10*6/uL (4.20-5.50); Red Cell Distribution Width 12.6 % (11.0-16.0); White Blood Count 8.8 X10*3/uL (4.8-10.8)
[2024-10-15 10:56] LABS: Alanine Aminotransferase 37 U/L (0-31); Albumin Level 4.1 g/dL (3.5-5.0); Alkaline Phosphatase 66 U/L (39-117); Anion Gap 11 (12-20); Aspartate Amino Transferase 30 U/L (5-31); Bilirubin Direct 0.1 mg/dL (0.0-0.5); Bilirubin Total 0.4 mg/dL (0.0-1.0); Blood Urea Nitrogen 10 mg/dL (9-16); Calcium 9.3 mg/dL (8.4-10.2); Carbon Dioxide 22 mmol/L (22-29); Chloride 108 mmol/L (96-108); Creatinine Clr Calc Pharmacy 115.3; Estimated Glomerular Filt Rate > 60; Glucose Random 95 mg/dL (60-115); Magnesium 2.1 mg/dL (1.6-2.6); Potassium 3.4 mmol/L (3.3-5.1); Sodium 138 mmol/L (135-145); Total Protein 7.2 g/dL (6.5-8.0)
[2024-10-15 11:01] LABS: B Type Natriuretic Peptide < 10 pg/mL (<100)
[2024-10-15 11:09] LABS: Troponin-I High Sensitivity < 2.7 ng/L (<3.5-17.0)
[2024-10-15 11:24] VITALS: BP 101/52; PULSE 68; RESP 14; TEMP 37.3; O2SAT 97
[2024-10-15 12:27] VITALS: BP 110/62; PULSE 81; RESP 18; TEMP 37.6; O2SAT 97
[2024-10-15 12:28] VITALS: BP 110/62; PULSE 81; RESP 18; TEMP 37.6; O2SAT 97
== END 2024-10-15 12:29 | disposition home or self-care (01) ==
PROVIDERS: Physician Assistant Medical; Emergency Provider Emergency Medicine
DX: J40 Bronchitis, not specified as acute or chronic (principal); R05.9 Cough, unspecified; R06.02 Shortness of breath; R09.81 Nasal congestion; R07.89 Other chest pain; Z79.899 Other long term (current) drug therapy; Z03.818 Encounter for observation for suspected exposure to other biological agents ruled out
CPT/HCPCS: 0241U; 36415; 71046; 80048; 80076; 83735; 83880; 84484; 85025; 93005; 94640; 94664; 99284

== ENCOUNTER → 2024-10-15 08:49 | Outpatient (BNV) | payer MEDICAID, SELFPAY | PROVIDERS: Emergency Provider Emergency Medicine; Visit Provider Radiology Diagnostic Radiology | DX: R05.9 Cough, unspecified (principal) | CPT/HCPCS: 71046 ==

== ENCOUNTER → 2024-10-15 10:07 | Outpatient (BNV) | payer MEDICAID, SELFPAY | PROVIDERS: Emergency Provider Emergency Medicine; Visit Provider Internal Medicine Cardiovascular Disease | DX: R06.02 Shortness of breath (principal) | CPT/HCPCS: 93010 ==

== ENCOUNTER 2024-12-11 14:19 | Emergency (ER) | payer MEDICAID, SELFPAY ==
[2024-12-11 14:35] VITALS: BP 108/63; PULSE 88; RESP 18; TEMP 36.8; O2SAT 97; BMI 37.9
[2024-12-11 20:39] VITALS: BP 120/74; PULSE 88; RESP 18; TEMP 36.8; O2SAT 100
--- NOTE | 2024-12-11 22:27 | ED_ITS ---
HPI - Eye Problem General Chief complaint: Eye Problems Stated complaint: eye redness, swelling Time Seen by Provider: 12/11/24 21:22 Source: patient Mode of arrival: ambulatory Limitations: no limitations History of Present Illness ED Provider: HPI Narrative: Patient was healthy noticed pain in the right eye for last 1 week along with swelling of the right eyelid no vision loss feels slightly blurred no scotomas no prior history in the past Related Data Previous Rx's ?Medication ?Instructions ?Recorded azithromycin 250 mg tablet 250 mg PO DAILY 4 days #4 tabs 09/12/22 (Zithromax) benzonatate 200 mg capsule 200 mg PO TID PRN cough #30 caps 09/12/22 prednisone 20 mg tablet 40 mg (2 x 20 mg) PO DAILY #10 tabs 09/12/22 albuterol sulfate 90 mcg/actuation 2 puff inhalation Q4-6H PRN 09/02/24 aerosol inhaler shortness of breath or wheezing #8.5 grams azithromycin 250 mg tablet See Rx Instructions PO .COMPLEX #6 09/02/24 tabs benzonatate 200 mg capsule 200 mg PO TID PRN cough 5 days #15 09/02/24 caps prednisone 20 mg tablet 40 mg (2 x 20 mg) PO DAILY 5 days 09/02/24 #10 tabs doxycycline hyclate 100 mg capsule 100 mg PO BID 5 days #10 caps 10/15/24 prednisone 20 mg tablet 40 mg (2 x 20 mg) PO DAILY 5 days 10/15/24 #10 tabs erythromycin 5 mg/gram (0.5 %) eye 0.5 inch ophthalmic (eye) BID #3.5 12/11/24 ointment grams timolol 0.5 % eye drops 1 drp ophthalmic (eye) BID #5 mL 12/11/24 tobramycin 0.3 % eye drops 1 drp ophthalmic (eye) Q4H #5 mL 12/11/24 Allergies Allergy/AdvReac Type Severity Reaction Status Date / Time No Known Allergies Allergy Verified 12/11/24 14:37 [No Known Allergies*] Review of Systems Review of Systems: Yes all other systems are reviewed and are negative PMFSH Social History Social History Smoked in Last 30 Days: No Use of substances other than those prescribed or required for medical reasons: No Advance Directives: No Advance Directives Information Provided: No Physical Exam Vital Signs: Vital Signs: Last Vital Signs Temp 98.2 F 12/11/24 20:39 Pulse 88 12/11/24 20:39 Resp 18 12/11/24 20:39 BP 120/74 12/11/24 20:39 Pulse Ox 100 12/11/24 20:39 O2 Del Method Room Air 12/11/24 20:39 BMI result Body Mass Index 37.9 Appearance: Alert. Oriented X3. No acute distress. Eyes: PERRLA, No Nystagmus right eye IOP 31 left eye IOP 21 inflamed right upper eyelid inflamed conjunctiva both scleral and palpebral anterior chamber is normal fundus benign left eye normal ENT: Pharynx normal. Oral Mucosa moist Neck: Normal inspection. Neck supple. CVS: Normal heart rate and rhythm. Pulses normal. Respiratory: No respiratory distress. Equal air entry bilateral, Abdomen: Soft and nontender. Bowel sounds are present, Skin: Skin warm and dry. Normal skin color. Normal skin turgor. Extremities: No lower extremity edema. No calf tenderness Neuro: Oriented X 3. Medical Decision Making Medical Decision Making [facility] Narrative: Patient with subacute right narrow angle glaucoma pressure is 30 in 1 in the right eye and 21 in the left eye will start patient on timolol eye drops advised to follow up with analytical manager Patient does not have any significant vision loss Also has blepharitis will give erythromycin ointment and tobramycin eye drops Discharge Plan Discharge Clinical Impression: Blepharitis of eyelid of right eye, Glaucoma Patient Disposition: Home, Self-Care Instructions: Blepharitis (ED), Glaucoma (ED) Additional Instructions: You have inflammation of the right eyelid hair follicle apply erythromycin ointment twice a day at the margin of the eyelid Tobramycin eye drops 2 drops 4 times a day Also you have elevated pressure in the eye Started using timolol eyedrops 1 drop in each eye twice daily You need to follow up with analytical manager Prescriptions: New timolol 0.5 % drops 1 drp ophthalmic (eye) BID Qty: 5 0RF tobramycin 0.3 % drops 1 drp ophthalmic (eye) Q4H Qty: 5 0RF erythromycin 5 mg/gram (0.5 %) ointment 0.5 inch ophthalmic (eye) BID Qty: 3.5 0RF No Action benzonatate 200 mg capsule 200 mg PO TID PRN (Reason: cough) Qty: 30 0RF prednisone 20 mg tablet 40 mg PO DAILY Qty: 10 0RF azithromycin [Zithromax] 250 mg tablet 250 mg PO DAILY 4 Days Qty: 4 0RF Rx Instructions: start on day 2 of therapy doxycycline hyclate 100 mg capsule 100 mg PO BID 5 Days Qty: 10 0RF prednisone 20 mg tablet 40 mg PO DAILY 5 Days Qty: 10 0RF prednisone 20 mg tablet 40 mg PO DAILY 5 Days Qty: 10 0RF azithromycin 250 mg tablet See Rx Instructions .ROUTE .COMPLEX Qty: 6 0RF Rx Instructions: For 250 mg dose pack: take 500 mg today (day 1), then 250 mg for 4 days (days 2-5) benzonatate 200 mg capsule 200 mg PO TID PRN (Reason: cough) 5 Days Qty: 15 0RF albuterol sulfate 90 mcg/actuation HFA aerosol inhaler 2 puff inhalation Q4-6H PRN (Reason: shortness of breath or wheezing) Qty: 8.5 0RF Referrals: Jeramie Palma [Physician] - 3 days Print Language: Danish
[2024-12-11] MEDS: Tobramycin Sulfate 0.3% Sol Op 5 ML BTL 2 DROP EYE-RIGHT (22:47)
[2024-12-11] MEDS: Erythromycin Base 0.5% Oph Oin 1 GM TUBE 1 CM EYE-RIGHT (22:48)
[2024-12-11] MEDS: timoloL maleate 0.5 % Oph Sol 5 ML DRBTL 1 DROP EYE-BOTH (22:48)
[2024-12-11 22:50] VITALS: BP 114/57; PULSE 79; RESP 18; TEMP 36.8; O2SAT 98
== END 2024-12-11 23:07 | disposition home or self-care (01) ==
PROVIDERS: Emergency Provider Internal Medicine
DX: H01.001 Unspecified blepharitis right upper eyelid (principal); H40.9 Unspecified glaucoma; H57.11 Ocular pain, right eye
CPT/HCPCS: 99283; 99284

== ENCOUNTER 2025-05-11 09:51 | Emergency (ER) | payer MEDICAID, SELFPAY ==
--- NOTE | ~2025-05-11 | XR_ITS ---
EXAMINATION: XR CHEST CLINICAL INFORMATION: cough COMPARISON: October 15/2024. TECHNIQUE: 2 views of the chest were obtained. FINDINGS: No consolidation, pleural effusion or pneumothorax. Cardiomediastinal silhouette size is normal. Osseous structures are intact. XR/XR chest 2V IMPRESSION: No acute airspace disease. Stable chest. Electronically signed by: Garcia Miles MD 05/11/2025 10:50 AM EDT
[2025-05-11 10:22] VITALS: PULSE 84; RESP 14; TEMP 36.6; O2SAT 96; BMI 37.3
[2025-05-11 10:29] VITALS: BP 101/61; PULSE 89; RESP 16; TEMP 36.5; O2SAT 97; O2SAT 98
--- NOTE | 2025-05-11 10:39 | ED_ITS ---
HPI - General Adult General Chief complaint: Upper Respiratory Symptoms Stated complaint: Strep? Copd? Time Seen by Provider: 05/11/25 10:38 Source: patient Mode of arrival: ambulatory Limitations: no limitations History of Present Illness ED Provider: Pippa Giles PA-C HPI narrative: Patient is a 40 year old assigned female at with a history of bronchitis presenting to the emergency department today with nasal congestion, sore throat, and a cough. Patient states that last week her daughter was seen here and diagnosed with strep throat. Patient states that over the last couple of days she has had a cough, sinus congestion, and a sore throat. Patient denies any dizziness, lightheadedness, abdominal pain, nausea, vomiting, fever, chills, blurry vision, double vision, loss of vision, chest pain, difficulty breathing, shortness of breath, back pain, night sweats, pain with urination, increased urinary frequency, increased urinary urgency, blood in her urine or stool, synco pe or a near syncopal episode, recent trauma or falls, bowel incontinence, bladder incontinence, or any other complaints at this time. Onset (ago): day(s) (2) Relieving factors: none Exacerbating factors: none Associated symptoms: cough Treatments prior to arrival: none Related Data Previous Rx's ?Medication ?Instructions ?Recorded azithromycin 250 mg tablet 250 mg PO DAILY 4 days #4 tabs 09/12/22 (Zithromax) benzonatate 200 mg capsule 200 mg PO TID PRN cough #30 caps 09/12/22 prednisone 20 mg tablet 40 mg (2 x 20 mg) PO DAILY #10 tabs 09/12/22 albuterol sulfate 90 mcg/actuation 2 puff inhalation Q4-6H PRN 09/02/24 aerosol inhaler shortness of breath or wheezing #8.5 grams azithromycin 250 mg tablet See Rx Instructions PO .COMPLEX #6 09/02/24 tabs benzonatate 200 mg capsule 200 mg PO TID PRN cough 5 days #15 09/02/24 caps prednisone 20 mg tablet 40 mg (2 x 20 mg) PO DAILY 5 days 09/02/24 #10 tabs doxycycline hyclate 100 mg capsule 100 mg PO BID 5 days #10 caps 10/15/24 prednisone 20 mg tablet 40 mg (2 x 20 mg) PO DAILY 5 days 10/15/24 #10 tabs erythromycin 5 mg/gram (0.5 %) eye 0.5 inch ophthalmic (eye) BID #3.5 12/11/24 ointment grams timolol 0.5 % eye drops 1 drp ophthalmic (eye) BID #5 mL 12/11/24 tobramycin 0.3 % eye drops 1 drp ophthalmic (eye) Q4H #5 mL 12/11/24 doxycycline hyclate 100 mg tablet 100 mg PO BID 7 days #14 tabs 05/11/25 Allergies Allergy/AdvReac Type Severity Reaction Status Date / Time No Known Allergies Allergy Verified 05/11/25 10:28 [No Known Allergies*] Review of Systems Constitutional: Constitutional: Reports no additional constitutional complaints, Denies chills, Denies fever(s) and Denies night sweats Eyes: Eyes: Reports no additional eye complaints, Denies blurry vision, Denies change in vision, Denies diplopia, Denies eye discharge, Denies loss of vision and Denies eye pain ENT: Denies dizziness, Reports nasal congestion and Reports sore throat Cardiovascular: Cardiovascular: Reports no additional cardiovascular complaints, Denies chest pain, Denies lightheadedness, Denies Loss of Consciousness and Denies dyspnea Respiratory: Respiratory: Reports no additional respiratory complaints, Reports cough and Denies dyspnea Gastrointestinal: Gastrointestinal: Reports no additional gastrointestinal complaints, Denies abdominal pain, Denies melena, Denies hematochezia, Denies change in bowel habits and Denies change in stool character Genitourinary: Genitourinary: Denies hematuria, Denies urinary frequency, Denies dysuria, Denies urinary incontinence, Denies urinary hesitancy and Denies urinary urgency Musculoskeletal: Musculoskeletal: Reports no additional musculoskeletal complaints, Denies numbness and Denies tingling Neurologic: Denies dizziness, Denies loss of vision, Denies numbness and Denies tingling Psychiatric: Psychiatric: Reports no additional psychiatric complaints Endocrine: Endocrine: Reports no additional endocrine complaints Hematologic/Lymphatic: Hematologic/Lymphatic: Reports no additional hematologic/lymphatic complaints Allergic/Immunologic: Allergic/Immunologic: Reports no additional allergic/immunologic complaints [facility] Past Medical History Attestation statement: The following information was validated with the patient. Source: old records reviewed and nursing notes reviewed Social History Social History Smoked in Last 30 Days: Yes Use of substances other than those prescribed or required for medical reasons: No Advance Directives: No Advance Directives Information Provided: Yes Do you have a plan to hurt others: No Plan Patient : No Physical Exam ED Vital Signs: Vital Signs - 24 hr 05/11/25 10:22 05/11/25 10:29 05/11/25 10:29 Temperature 97.8 F 97.7 F Pulse Rate 84 89 Respiratory Rate 14 16 Blood Pressure 101/61 Pulse Oximetry 96 98 97 Oxygen Delivery Method Room Air Room Air Room Air 05/11/25 11:44 Temperature 97.7 F Pulse Rate 89 Respiratory Rate 16 Blood Pressure 101/61 Pulse Oximetry 97 Oxygen Delivery Method Room Air BMI result Body Mass Index 37.3 Const General: cooperative, no acute distress, alert and awake Nutritional Appearance: well nourished Orientation/consciousness: patient oriented x3 HENMT Head: Yes normal to inspection and Yes atraumatic Ears: hearing grossly normal bilaterally and external ears normal General nose exam: Normal external nose present, no nasal discharge noted and no epistaxis Face and sinus: Yes normal facial exam, No abrasion and No laceration Mouth: Normal oral and palatal mucosa present, no drooling and no muffled voice Eyes General: appearance normal, both eyes and all related structures Periorbital: periorbital findings normal Eyelids: Yes eyelids normal Conjunctivae: conjunctivae normal Pupils: Equal, round and reactive pupils present EOM: EOMs intact bilaterally Neck Neck: Yes normal visual inspection, Yes full ROM and Yes no lymphadenopathy Resp Effort & Inspection: normal respiratory effort and able to speak in complete sentences Neuro General: patient oriented x3, moves all extremities and CN's II-XI intact bilaterally Cranial nerves: Yes Equal, round and reactive pupils present Cognition (Neuro): normal cognition Extrem General: Yes normal to inspection, Yes full ROM and Yes capillary refill normal Psych Appearance: grossly normal Mental Status: mental status grossly normal Affect: normal affect Attitude: cooperative Thought process: Normal thought process present Thought content: Normal thought content present Insight: Good insight present (Psych) Medical Decision Making Medical Decision Making MDM Narrative: Patient is a 40 year old assigned female at with a history of bronchitis presenting to the emergency department today with nasal congestion, sore throat, and a cough. Patient's physical exam was unremarkable. Patient's strep, COVID- 19, influenza, and RSV tests were negative. Patient's chest x-ray showed no acute process. Given the patient's clinical presentation, will treat as sinusitis. I explained my physical exam findings as well as all test results to the patient. I answered all questions asked by the patient. I stressed the importance of the patient taking her medication as directed (either prescribed or as the over the counter packaging recommends). I stressed the importance of the patient following up with her primary care provider. I stressed the importance of the patient returning to the emergency department immediately if her symptoms were to worsen or if she were to develop any dizziness, shortness of breath, difficulty breathing, chest pain, blurry vision, loss of vision, nausea, vomiting, abdominal pain, fever, chills, back pain, or any other complaints. Patient verbalized agreement and understanding with this treatment plan and discharge. Differential Diagnosis Differential Diagnoses: The differential diagnosis associated with the presentation includes Pharyngitis Sinusitis COVID-19 Influenza RSV Admission/Observation Consideration of admission/observation: Escalation of care including admission/observation considered Patient would have been admitted to the hospital had her work up had any findings where hospital admission was appropriate and her clinical presentation warranted hospital admission. Lab Data MDM Lab Attestation statement: I reviewed the patient's lab results. My interpretation of these studies and their corresponding values is that they are grossly normal. Labs: Lab Results 05/11/25 Range/Units 10:52 Influenza Type A (PCR) NEGATIVE (Negative) Influenza Type B (PCR) NEGATIVE (Negative) RSV RNA Qual (PCR) NEGATIVE (Negative) SARS-CoV-2 RNA (RT-PCR) NEGATIVE (Negative) S. pyogenes GrpA JOHN Negative (Negative) Independent Interpretation I performed an independent interpretation of an: Plain X-Ray (Chest) Interpretation: My interpretation is in agreement with the radiologist's impression of this imaging study. EXAMINATION: XR CHEST CLINICAL INFORMATION: cough COMPARISON: October 15/2024. TECHNIQUE: 2 views of the chest were obtained. FINDINGS: No consolidation, pleural effusion or pneumothorax. Cardiomediastinal silhouette size is normal. Osseous structures are intact. XR/XR chest 2V IMPRESSION: No acute airspace disease. Stable chest. Electronically signed by: Garcia Miles MD 05/11/2025 10:50 AM EDT RP Dictated By: Garcia Henriquez MD Signed By: Electronically signed by Garcia Hugo MD 05/11/25 1050 Radiology Impression Discussion of test interpretation with radiology: I have reviewed the radiologist's reading. Prescription Management I considered prescription management with: Antibiotic (Patient prescribed an antibiotic for sinusitis) Discharge Plan Discharge Clinical Impression: Sinusitis Patient Disposition: Home, Self-Care Instructions: Sinusitis (ED) Additional Instructions: Take your medication as prescribed. Stay out of direct sunlight while on it. Follow up with your primary care provider. Return to the emergency department immediately if your symptoms worsen or if you develop any numbness, tingling, dizziness, shortness of breath, difficulty breathing, chest pain, blurry vision, loss of vision, nausea, vomiting, abdominal pain, fever, chills, back pain, or any other complaints. Please see the information below about our Patient Portal. If you are not yet enrolled in the [facility] Patient Portal, you will receive an enrollment email invitation following your visit to any [facility] setting. You may also self-enroll in the Patient Portal by visiting our website: [email or web address] The following information is required to access the Patient Portal: - Your [facility] Medical Record Number - Your personal home email address (must match what is in your electronic medical record, Registration staff can assist with this) - Name - Date of Capabilities of the Patient Portal: - Message some providers - View upcoming appointments - Access your health summary, medical history, and visit history - View current conditions and allergies - View procedure and lab results - View your medications, including guidelines, side effects, and precautions - Complete pre-appointment questionnaires requested by your provider - Ready summary reports of your office visits and procedures To access the Patient Portal Mobile [employer]ana, follow these directions: - Search [employer] in the Alana Store or clypd Store - Download the Alana - Search for [facility] - Enter your login/password Prescriptions: New doxycycline hyclate 100 mg tablet 100 mg PO BID 7 Days Qty: 14 0RF No Action benzonatate 200 mg capsule 200 mg PO TID PRN (Reason: cough) Qty: 30 0RF prednisone 20 mg tablet 40 mg PO DAILY Qty: 10 0RF azithromycin [Zithromax] 250 mg tablet 250 mg PO DAILY 4 Days Qty: 4 0RF Rx Instructions: start on day 2 of therapy doxycycline hyclate 100 mg capsule 100 mg PO BID 5 Days Qty: 10 0RF prednisone 20 mg tablet 40 mg PO DAILY 5 Days Qty: 10 0RF timolol 0.5 % drops 1 drp ophthalmic (eye) BID Qty: 5 0RF tobramycin 0.3 % drops 1 drp ophthalmic (eye) Q4H Qty: 5 0RF erythromycin 5 mg/gram (0.5 %) ointment 0.5 inch ophthalmic (eye) BID Qty: 3.5 0RF prednisone 20 mg tablet 40 mg PO DAILY 5 Days Qty: 10 0RF azithromycin 250 mg tablet See Rx Instructions .ROUTE .COMPLEX Qty: 6 0RF Rx Instructions: For 250 mg dose pack: take 500 mg today (day 1), then 250 mg for 4 days (days 2-5) benzonatate 200 mg capsule 200 mg PO TID PRN (Reason: cough) 5 Days Qty: 15 0RF albuterol sulfate 90 mcg/actuation HFA aerosol inhaler 2 puff inhalation Q4-6H PRN (Reason: shortness of breath or wheezing) Qty: 8.5 0RF Referrals: [facility] Family Medicine [Provider Group] (Call to establish and follow up with a primary care provider. If you already have a primary care provider, please follow up with them.) [facility] Primary CareJose Eduardo [Provider Group] (Call to establish and follow up with a primary care provider. If you already have a primary care provider, please follow up with them.) [facility] Primary Care, [place] [Provider Group] (Call to establish and follow up with a primary care provider. If you already have a primary care provider, please follow up with them.) [facility] Primary Care, [place] [Provider Group] (Call to establish and follow up with a primary care provider. If you already have a primary care provider, please follow up with them.) [facility] Primary CareAlex [Provider Group] (Call to establish and follow up with a primary care provider. If you already have a primary care provider, please follow up with them.) Interventions: ED Discharge Assessment Last Done: 05/11/25 11:44 Discharge Date/Time: 05/11/25 11:45 Print Language: Icelandic
--- NOTE | 2025-05-11 10:46 | PC.NURSE ---
Patient A&O x 3. Patient presents to ED c/o upper respiratory symptoms. Patients [place] [facility] [place] for st[place]. Symptoms started two days ago with SOB, scratchy throat, productive cough. O2 97% RA RR 18. Denies fever/chills. Throat pain rated 5/10. Oral mucosa examined no infectious process noted. VSS and up to date. Plan of care on going.
[2025-05-11 11:37] LABS: IDNOW Serial# 55D5AD1C; Strep A Nucleic Acid Negative (Negative)
[2025-05-11 11:38] LABS: Influenza A PCR NEGATIVE (Negative); Influenza B PCR NEGATIVE (Negative); Resp Syncy Virus RNA Qual PCR NEGATIVE (Negative); SARS COV2 PCR INHOUSE NEGATIVE (Negative)
[2025-05-11 11:44] VITALS: BP 101/61; PULSE 89; RESP 16; TEMP 36.5; O2SAT 97
--- OUTSIDE RECORDS SUMMARY | 2025-05-11 12:17 | XMS_ITS | Data Portability ---
Author Organization [facility], , [facility] Address [address] [place] [address] Care Team Providers Care Narrow Gauge Operator Name Role Phone RAGHU ANAND Primary Care Provider [phone] Assessment Encounter Date Assessment Date Assessment LastModified by Organization Details LastModified Time 09/12/2016 09/12/2016 Tobacco use not addressed. Z-pack as directed. Prednisone as directed. Continue ibuprofen along with heat to chest. Cyclobenzaprine as directed. F/u if not improving. Not available 09/12/2016 18:10:22 Plan of Treatment Reminders Order Date Submit Date Provider Last Modified By Organization Details Last Modified Time Details Appointments None recorded. Lab beta-HCG, qualitativ e, serum or plasma 2015 016 DBA_PATCH_ [id number] [facility], [address] [place], [address], 6 04:10:[address] referral [address] , [place], [address], 7 05:01:08 Procedures None recorded. Surgeries None recorded. Imaging None recorded. Medication Orders Wellbutrin SR 150 mg tablet, 12 hr sustained- release 2016 017 INTERFACE [id number], [address] [place], [address], 7 17:25:48 azithromyc in 250 mg tablet 2016 017 INTERFACE [facility], [address] [place], [address], 7 17:25:48 Diflucan 150 mg tablet 2015 016 [email or web address] [facility], [address] [place] [address], [address], 7 17:21:37 Wellbutrin SR 150 mg tablet, 12 hr sustained- release 2015 016 DBA_PATCH_ [id number] [facility], [address] [place] [address], [address], 6 04:09:29 prednisone 20 mg tablet 2015 016 DBA_PATCH_ [id number] [facility], [address] [place] [address], [address], 6 04:08:23 Zithromax Z-Nacho 250 mg tablet 2015 016 DBA_PATCH_ [id number] [facility], [address] [place] [address], [address], 6 04:08:28 cyclobenza jolanta 10 mg tablet 2015 016 DBA_PATCH_ [id number] [facility], [address] [place] [address], [address], 6 04:08:38 Patient TargetsNo targets recorded. Patient Instructions Encounter Date Encounter Id Patient Instructions Last Modified By Organization Details Last Modified Time 09/12/2016 [id number] Counseling done Goal for follow up visit New medication was discussed with patient including risks, benefits ,possible and expected side effects. Patient understands and is willing to begin medication as prescribed. My Health To Do List Not available 09/12/2016 18:10:33 09/27/2016 [id number] deciding about using medicines to quit smoking [email or web address] [id number] Not available 11/10/2016 04:09:45 Quitting Tobacco : Care Instructions DBA_[email or web address] [id number] Not available 11/10/2016 04:09:45 Counseling done Goal for follow up visitMy Health To Do List Not available 09/27/2016 14:00:11 10/04/2016 [id number] Glasses Rx was given with add for near. Discussed migraine and f/u with pcp. [email or web address] Not available 10/04/2016 14:17:39 10/09/2016 [id number] deciding about using medicines to quit smoking DBA_[email or web address] [id number] Not available 11/10/2016 04:09:50 Quitting Tobacco : Care Instructions DBA_[email or web address] [id number] Not available 11/10/2016 04:09:50 Counseling done Goal for follow up visitMy Health To Do List Not available 10/09/2016 10:19:58 12/26/2016 [id number] deciding about using medicines to quit smoking [email or web address] Not available 12/26/2016 18:21:39 Quitting Tobacco : Care Instructions [email or web address] Not available 12/26/2016 18:21:39 Counseling done Goal for follow up visit Health To Do List [email or web address] Not available 12/26/2016 16:38:42 Reason for Referral Moccasin Sewer Referral for Oro rveillance of subcutaneous contraceptive implant Requests removal of Implanon; does not like how she feels on it Referring Physician: Erin Yap, Family Medicine, Encounter Date: 09/27/2016 Results Created Date Observation Date Name Description Value Unit Range Abnormal Flag Note LastModifiedBy Organization Detail LastModifiedTime 06/13/20 18 06/13/2018 CBC w/ auto diff WBC 13.61 K/uL 3.40-1 1.20 high Not Available [facility] (Out[facility]) [address] [place], [address], 06/13/2018 01:23:06 06/13/20 18 06/13/2018 CBC w/ auto diff RBC 4.63 M/uL 3.80-4 .80 Not Available [facility] [address] [place], [address], 06/13/2018 01:23:06 06/13/20 18 06/13/2018 CBC w/ auto diff HGB 13.8 g/dL 12.0-1 5.0 Not Available [facility] [address] [place], [address], 06/13/2018 01:23:06 06/13/20 18 06/13/2018 CBC w/ auto diff HCT 38.9 % 36.0-4 6.0 Not Available [facility]) [address] [place], [address], 06/13/2018 01:23:06 06/13/20 18 06/13/2018 CBC w/ auto diff plt 268 K/uL 130-40 0 Not Available [facility] [address] [place], [address], 06/13/2018 01:23:06 06/13/20 18 06/13/2018 CBC w/ auto diff MCV 84.0 fL 79.0-9 8.0 Not Available [facility]) [address] [place] [address], [address], 06/13/2018 01:23:06 06/13/20 18 06/13/2018 CBC w/ auto diff MCH 29.8 pg 27.0-3 4.8 Not Available [facility]) [address] [place] [address], [address], 06/13/2018 01:23:06 06/13/20 18 06/13/2018 CBC w/ auto diff MCHC 35.5 g/dL 31.5-3 6.0 Not Available [facility]) [address] [place], [address], 06/13/2018 01:23:06 06/13/20 18 06/13/2018 CBC w/ auto diff RDW 13.0 % 10.8-1 4.6 Not Available [facility] [address] [place], [address], 06/13/2018 01:23:06 06/13/20 18 06/13/2018 CBC w/ auto diff MPV 10.4 fL 9.4-12 .4 Not Available [facility] [address] [place], [address], 06/13/2018 01:23:06 06/13/20 18 06/13/2018 CBC w/ auto diff NRBC 0.00 /100_ WBCs Not Available [facility] [address] [place], [address], 06/13/2018 01:23:06 06/13/20 18 06/13/2018 CBC w/ auto diff absolute NRBC 0.00 K/uL Not Available [facility] [address] [place], [address], 06/13/2018 01:23:06 06/13/20 18 06/13/2018 CBC w/ auto diff diff method Auto Not Available [facility]) [address] [place] [address], [address], 06/13/2018 01:23:06 06/13/20 18 06/13/2018 CBC w/ auto diff neuts 68.2 % 45.30- 77.70 Not Available [facility]) [address] [place] [address], [address], 06/13/2018 01:23:06 06/13/20 18 06/13/2018 CBC w/ auto diff lymphs 25.1 % 12.30- 39.70 Not Available [facility]) [address] [place] [address], [address], 06/13/2018 01:23:06 06/13/20 18 06/13/2018 CBC w/ auto diff monos 4.8 % 4.10-1 2.80 Not Available [facility] [address] [place], [address], 06/13/2018 01:23:06 06/13/20 18 06/13/2018 CBC w/ auto diff eos 1.2 % 0-7.2 Not Available [facility] [address] [place], [address], 06/13/2018 01:23:06 06/13/20 18 06/13/2018 CBC w/ auto diff basos 0.4 % 0-2.80 Not Available [facility] [address] [place], [address], 06/13/2018 01:23:06 06/13/20 18 06/13/2018 CBC w/ auto diff granulocytes , immature (%) 0.3 % 0.0-0. 9 Not Available [facility] [address] [place], [address], 06/13/2018 01:23:06 06/13/20 18 06/13/2018 CBC w/ auto diff absolute neuts 9.27 K/uL 1.40-7 .70 high Not Available [facility] [address] [place], [address], 06/13/2018 01:23:06 06/13/20 18 06/13/2018 CBC w/ auto diff absolute lymphs 3.42 K/uL 0.60-3 .20 high Not Available [facility] [address] [place], [address], 06/13/2018 01:23:06 06/13/20 18 06/13/2018 CBC w/ auto diff absolute monos 0.65 K/uL 0.11-0 .59 high Not Available [facility] [address] [place], [address], 06/13/2018 01:23:06 06/13/20 18 06/13/2018 CBC w/ auto diff absolute eos 0.17 K/uL 0.01-0 .50 Not Available [facility] [address] [place], [address], 06/13/2018 01:23:06 06/13/20 18 06/13/2018 CBC w/ auto diff absolute basos 0.06 K/uL 0.00-0 .08 Not Available [facility] [address] [place], [address], 06/13/2018 01:23:06 06/13/20 18 06/13/2018 CBC w/ auto diff granulocytes , immature 0.04 K/uL 0.00-0 .05 Not Available [facility] [address] [place], [address], 06/13/2018 01:23:06 06/13/20 18 06/13/2018 type + scree n, blood ABO/Rh O Positi ve Not Available [facility] [address] [place], [address], 06/13/2018 02:07:17 06/13/20 18 06/13/2018 type + scree n, blood antibody screen Negati ve Not Available [facility] [address] [place], [address], 06/13/2018 02:07:17 06/13/20 18 06/13/2018 type + scree n, blood %rn-tsu [id number] Not Available [facility] [address] [place], [address], 06/13/2018 02:07:17 06/13/20 18 06/13/2018 type + scree n, blood expiration date of sample 2017 Not Available [facility] [address] [place], [address], 06/13/2018 02:07:17 06/13/20 18 06/13/2018 type + scree n, blood resulting agency [facility] Not Available [facility] [address] [place], [address], 06/13/2018 02:07:17 06/13/20 18 06/13/2018 abo group + rh type, blood ABO/Rh O Positi ve Not Available [facility] [address] [place], [address], 06/13/2018 02:12:18 06/13/20 18 06/13/2018 abo group + rh type, blood resulting agency [facility] Not Available [facility] [address] [place], [address], 06/13/2018 02:12:18 06/13/20 18 06/13/2018 urine sedim ent WBC 5-10 /hpf none seen abnormal Not Available [facility] [address] [place], [address], 06/13/2018 02:30:41 06/13/20 18 06/13/2018 urine sedim ent RBC NONE SEEN /hpf none seen Not Available [facility] [address] [place], [address], 06/13/2018 02:30:41 06/13/20 18 06/13/2018 urine sedim ent urine epithelial 5-10 none seen abnormal Not Available [facility] [address] [place], [address], 06/13/2018 02:30:41 06/13/20 18 06/13/2018 urine sedim ent mucus NONE SEEN /hpf none seen Not Available [facility] [address] [place], [address], 06/13/2018 02:30:41 06/13/20 18 06/13/2018 urine sedim ent bacteria Trace none seen abnormal Not Available [facility] [address] [place], [address], 06/13/2018 02:30:41 06/13/20 18 06/13/2018 HCG (raj titat og blood ), pregn neeta HCG beta 80585. 0 mIU/m L Inter preta tion: FEMAL E: Negat og Resul t: Less than 5 mIU/m l. 1 Week Post Luana ption : 0 - 50 mIU/m l. 4 Weeks Post Luana ption : 3,000 - 19,00 0 mIU/m l. 12 Weeks Post Luana ption : 16,00 0 - 160,0 00 mIU/m l. Not Available [facility] [address] [place], [address], 06/13/2018 02:34:41 06/13/20 18 06/13/2018 urina lysis , refle x cultu re color STRAW yellow abnormal Not Available [facility] [address] [place], [address], 06/13/2018 11:09:48 06/13/20 18 06/13/2018 urina lysis , refle x cultu re clarity Clear Not Available [facility]) [address] [place] [address], [address], 06/13/2018 11:09:48 06/13/20 18 06/13/2018 urina lysis , refle x cultu re glucose Negati ve negati ve Not Available [facility] [address] [place], [address], 06/13/2018 11:09:48 06/13/20 18 06/13/2018 urina lysis , refle x cultu re bili Negati ve negati ve Not Available [facility] [address] [place], [address], 06/13/2018 11:09:48 06/13/20 18 06/13/2018 urina lysis , refle x cultu re ketones Negati ve negati ve Not Available [facility] [address] [place], [address], 06/13/2018 11:09:48 06/13/20 18 06/13/2018 urina lysis , refle x cultu re specific gravity 1.010 1.005- 1.030 Not Available [facility] [address] [place], [address], 06/13/2018 11:09:48 06/13/20 18 06/13/2018 urina lysis , refle x cultu re blood Negati ve negati ve Not Available [facility] [address] [place], [address], 06/13/2018 11:09:48 06/13/20 18 06/13/2018 urina lysis , refle x cultu re pH 5.5 5.0-8. 0 Not Available [facility] [address] [place], [address], 06/13/2018 11:09:48 06/13/20 18 06/13/2018 urina lysis , refle x cultu re protein Negati ve negati ve Not Available [facility] [address] [place], [address], 06/13/2018 11:09:48 06/13/20 18 06/13/2018 urina lysis , refle x cultu re nitrite Negati ve negati ve Not Available [facility] [address] [place], [address], 06/13/2018 11:09:48 06/13/20 18 06/13/2018 urina lysis , refle x cultu re leukocyte esterase, ur 1+ negati ve abnormal Not Available [facility] [address] [place], [address], 06/13/2018 11:09:48 06/13/20 18 06/14/2018 cultu re, urine specimen description URINE Not Available [facility] ([facility]) [address] [place] [address], [address], 06/14/2018 15:40:59 06/13/20 18 06/14/2018 cultu re, urine special requests None Not Available [facility] [address] [place], [address], 06/14/2018 15:40:59 06/13/20 18 06/14/2018 cultu re, urine gram stain Few WBC'S , Few GRAM POSIT OG RODS , Few GRAM NEGAT OG RODS , Few EPITH ELIAL CELLS Not Available [facility] [address] [place], [address], 06/14/2018 15:40:59 06/13/20 18 06/14/2018 cultu re, urine culture / test >100, 000 colon y formi ng units per ml MIXED KAYY (3 OR MORE COLON Y TYPES ) Cultu re indic ates conta minat ion. Pleas e resub jordyn if neces keven. Not Available [facility] ([facility] [address] [place], [address], 06/14/2018 15:40:59 06/13/20 18 06/14/2018 cultu re, urine report status 2017 FINAL Not Available [facility] [address] [place], [address], 06/14/2018 15:40:59 07/04/20 18 07/04/2018 CBC WBC 9.43 K/uL 3.40-1 1.20 Not Available [facility] [address] [place], [address], 07/04/2018 13:56:20 07/04/20 18 07/04/2018 CBC RBC 4.64 M/uL 3.80-4 .80 Not Available [facility] [address] [place], [address], 07/04/2018 13:56:20 07/04/20 18 07/04/2018 CBC HGB 13.7 g/dL 12.0-1 5.0 Not Available [facility] [address] [place], [address], 07/04/2018 13:56:20 07/04/20 18 07/04/2018 CBC HCT 39.1 % 36.0-4 6.0 Not Available [facility] [address] [place], [address], 07/04/2018 13:56:20 07/04/20 18 07/04/2018 CBC plt 259 K/uL 130-40 0 Not Available [facility] [address] [place], [address], 07/04/2018 13:56:20 07/04/20 18 07/04/2018 CBC MCV 84.3 fL 79.0-9 8.0 Not Available [facility] [address] [place], [address], 07/04/2018 13:56:20 07/04/20 18 07/04/2018 CBC MCH 29.5 pg 27.0-3 4.8 Not Available [facility] [address] [place], [address], 07/04/2018 13:56:20 07/04/20 18 07/04/2018 CBC MCHC 35.0 g/dL 31.5-3 6.0 Not Available [facility] [address] [place], [address], 07/04/2018 13:56:20 07/04/20 18 07/04/2018 CBC RDW 12.8 % 10.8-1 4.6 Not Available [facility] [address] [place], [address], 07/04/2018 13:56:20 07/04/20 18 07/04/2018 CBC MPV 10.9 fL 9.4-12 .4 Not Available [facility] [address] [place], [address], 07/04/2018 13:56:20 07/04/20 18 07/04/2018 CBC NRBC 0.00 /100_ WBCs Not Available [facility] [address] [place], [address], 07/04/2018 13:56:20 07/04/20 18 07/04/2018 CBC absolute NRBC 0.00 K/uL Not Available [facility] [address] [place], [address], 07/04/2018 13:56:20 07/04/20 18 07/04/2018 obste tric scree n, serum or blood ABO/Rh O Positi ve Not Available [facility] [address] [place], [address], 07/04/2018 20:53:10 07/04/20 18 07/04/2018 obste tric scree n, serum or blood antibody screen Negati ve Not Available [facility] [address] [place], [address], 07/04/2018 20:53:10 07/04/20 18 07/04/2018 obste tric scree n, serum or blood resulting agency [facility] Not Available [facility] [address] [place], [address], 07/04/2018 20:53:10 07/04/20 18 07/05/2018 HIV-1 /2 antig en/an tibod y HIV 1/2 antibody screen NON-RE ACTIVE non-re active Not Available [facility] [address] [place], [address], 07/05/2018 22:10:59 07/04/20 18 07/05/2018 HIV-1 /2 antig en/an tibod y HIV-1 antigen NON-RE ACTIVE non-re active Not Available [facility] [address] [place], [address], 07/05/2018 22:10:59 07/04/20 18 07/06/2018 HBsAg (hepa titis B surfa ce Ag), serum HBV surface antigen Negati ve negati ve Not Available [facility] [address] [place], [address], 07/06/2018 10:01:52 07/04/20 18 07/06/2018 hepat itis C Ab, serum HCV Negati ve negati ve Not Available [facility] [address] [place], [address], 07/06/2018 10:01:54 07/04/20 18 07/07/2018 rubel la virus IgG Ab, QL, serum rubella Ab, IgG Positi ve positi ve Not Available [facility] [address] [place], [address], 07/07/2018 09:56:56 07/04/20 18 07/07/2018 trepo nema palli dum scree n, serum , refle x confi rmati on RPR NON-RE ACTIVE non-re active Not Available [facility] [address] [place], [address], 07/07/2018 10:24:20 07/04/20 18 07/07/2018 chlam ydia trach omati s and neiss eria gonor rhoea e nucle ic acid chlamydia trachomatis Not Detect ed not detect ed Not Available [facility] [address] [place], [address], 07/07/2018 10:45:49 07/04/20 18 07/07/2018 chlam ydia trach omati s and neiss eria gonor rhoea e nucle ic acid neiseria gonorrhoeae Not Detect ed not detect ed Not Available [facility] [address] [place], [address], 07/07/2018 10:45:49 07/04/20 18 07/07/2018 chlam ydia trach omati s and neiss eria gonor rhoea e nucle ic acid specimen type URINE Not Available [facility] [address] [place], [address], 07/07/2018 10:45:49 07/04/20 18 07/07/2018 vzv (vari sameera -zost er) Ab, serum varicella Ab(s) Equivo timothy positi ve abnormal Not Available [facility] [address] [place], [address], 07/07/2018 11:26:21 07/04/20 18 07/09/2018 cf (cyst ic fibro sis) profi le cystic fib 106 muta SEE NOTE 2017 02:07 PM (NOTE ) Test Resul t Flag Unit RefVa lue ----- ----- ----- ----- ----- ----- ----- ----- ----- ----- ----- ----- ----- - Cysti c Fibro sis Mutat ion Panel Resul t Summa ry NEGAT OG Resul t SEE NOTE None of the liste d mutat ions were detec brandyn. Inter preta tion SEE NOTE She navarrete ded the prese nce of the liste d mutat ions, the risk that this indiv idual is a marie er of anoth er cysti c fibro sis (CF) mutat ion is depen dent upon the ethni c backg round of the patie nt. Ethni city Risk (Dete ction rate, Marie er Freq) North marcello Europ tomasz (91%, 12/19) Mixed Europ tomasz 134 (82%, 12/19) [place] Europ tomasz 115 (79%, 12/19) Easte rn Europ tomasz (77%, 12/24) Ashke nazi Jewis h (97%, 12/19) Frenc h Canad svitlana (91%, 12/19) Afric an Ameri can (81%, 1/65) Hispa theodore Ameri can (82%, 146) Ameri can* (54%, ) *does not apply to indiv idual s of [place] shira ances try These calcu latio ns are based on the mutat ion detec tion rates and popul ation marie er frequ encie s noted in the chart and assum e no famil y histo ry of CF. Becaixa se there is littl e infor matio n avail able about the marie er frequ ency and mutat ion detec tion rates for indiv idual s of other ethni citie s, we are unabl e to provi de a elva ed risk asses sment for ethni citie s other than those liste d. A anuja ic consu ltati on may be of benef it. ----- ----- ----- ----A DDITI ONAL INFOR MATIO N---- ----- ----- ----- An onlin e resea [facility] oppor tunit y hayden d Genom eConn ect ([facility] mecon nect. org), a proje ct of [facility], is avail able for the recip ient of this anuja ic test. This patie nt dwayne try colle cts de-id entif ied anuja ic and healt h infor matio n to advan ce the knowl edge of anuja ic varia nts. [facility] is a colla borat or of [facility]. This may not be appli cable for all tests . Test resul ts shoul d be inter prete d in the sam xt of clini timothy findi ngs, famil y histo ry, and other labor atory data. Misin terpr etati on of resul ts may occur if the infor matio n provi ded is inacc urate or incom plete . Rare polym orphi sms exist that could lead to false -nega tive or false -posi tive resul ts. If resul ts obtai di do not match the clini timothy findi ngs, addit ional testi ng shoul d be consi dered . Bone Marro w trans plant s from allog enic donor s will inter fere with testi ng. Call [facility] atori es for instr uctio ns for testi ng patie nts who have recei riri a bone marro w trans plant . Multi ple in-si carol evalu ation tools may have been used to zee t in the inter preta tion of these resul ts. Of note, the sensi tivit y and speci ficit y of these tools for the deter minat ion of patho genic ity is curre ntly unval idate d. This test was devel oped and its perfo rmanc e edwin cteri stics deter mined by [facility] in a gasper r consi stent with CLIA requi remen ts. This test has not been clear ed or appro riri by the U.S. Food and Drug Admin istra tion. Speci men WB Whole Blood Metho d SEE NOTE The multi plex PCR based assay utili zing the [place] Mass Array platf orm was used to detec t 106 mutat ions, inclu ding the 23 mutat ions speci fied in the Ameri can [facility] ([facility] ) stand ards for popul ation based marie er scree terry. The mutat ions are as follo ws: delta F508, delta I507, G542X , G85E, R117H , W1282 X (TGG> TGA), 621+1 G>T, 711+1 G>T, N1303 K (C>A) , N1303 K (C>G) , R334W , R347P , A455E , 1717- 1G>A, R553X , R560T , G551D , 1898+ 1G>A, 2184d Faizan, 2789+ 5G>A, 3120+ 1G>A, R1162 X, 3659d elC, 3849+ 10kbC >T, the delet ion of exons 2-3, 296+2 T>A, E60X, R75X, 394_3 95del TT, 405+1 G>A, 406-1 G>A, E92X, 444de lA, 457TA T>G, R117C , Y122X , 574de lA, 663de lT, G178R , 711+5 G>A, 712-1 G>T, H199Y , P205S , L206W , 852de l22, 935de lA, 936de lTA, delta F311, 1078d elT, G330X , T338I , R347H , R352Q , Q359K , T360K , 1288i nsTA, S466X (C>A) , S466X (C>G) , G480C , Q493X , 1677d elTA, C524X , S549N , S549R (T>G) , Q552X , A559T , 1811+ 1.6kb A>G, 1812- 1G>A, 1898+ 1G>T, 1898+ 1G>C, 1898+ 5G>T, P574H , 1949d el84, 2043d elG, 2055d el9>A , 2105d el13i ns5, 2108d Faizan, 2143d elT, 2183_ 2184d elAAi nsG, 2184i nsA, R709X , K710X , 2307i nsA, R764X , Q890X , 2869i nsG, 3171d elC, 3199d el6, R1066 C, W1089 X (TGG> TAG), Y1092 X (C&gt ;G), Y1092 X (C>A) , M1101 K, M1101 R, D1152 H, R1158 X, 3667d el4, S1196 X, W1204 X (TGG> TAG), 3791d elC, Q1238 X, 3876d Faizan, S1251 N, S1255 X, 3905i nsT, and 4016d upT mutat ions are detec brandyn. Poly T deter minat ion and confi rmato ry testi ng of homoz ygous resul ts are perfo rmed as refle x tests when appro priat e. Relea sed By Armani Parry, Ph.D. [phone] [facility] (Outpatient) [address] [facility], [place], [address], 07/09/2018 15:07:42 08/07/20 18 08/08/2018 cultu re, urine specimen description URINE URINE Not Available [facility] (Outpatient) [address] [place], [address], 08/08/2018 11:17:38 08/07/20 18 08/08/2018 cultu re, urine special requests None Not Available [facility] (Outpatient) [address] [place], [address], 08/08/2018 11:17:38 08/07/20 18 08/08/2018 cultu re, urine gram stain Few GRAM POSITI VE RODS Not Available [facility] (Outpatient) [address] [place], [address], 08/08/2018 11:17:38 08/07/20 18 08/08/2018 cultu re, urine culture / test >100, 000 colon y formi ng units per ml MIXED KAYY (3 OR MORE COLON Y TYPES ) Cultu re indic ates conta minat ion. Pleas e resub jordyn if neces keven. Not Available [facility] (Outpatient) [address] [place], [address], 08/08/2018 11:17:38 08/07/20 18 08/08/2018 cultu re, urine report status 2017 FINAL Not Available [facility] (Outpatient) [address] [place], [address], 08/08/2018 11:17:38 09/30/20 18 10/01/2018 chlam ydia trach omati s and neiss eria gonor rhoea e nucle ic acid chlamydia trachomatis Not Detect ed not detect ed Not Available [facility] (Outpatient) [address] [place], [address], 10/01/2018 10:27:45 09/30/20 18 10/01/2018 chlam ydia trach omati s and neiss eria gonor rhoea e nucle ic acid neiseria gonorrhoeae Not Detect ed not detect ed Not Available [facility] (Outpatient) [address] [place], [address], 10/01/2018 10:27:45 09/30/20 18 10/01/2018 chlam ydia trach omati s and neiss eria gonor rhoea e nucle ic acid specimen type URINE Not Available [facility] (Outpatient) [address] [place], [address], 10/01/2018 10:27:45 10/20/20 18 10/20/2018 urina lysis , dipst ick color Yellow yellow Not Available [facility] (Outpatient) [address] [place], [address], 10/20/2018 23:10:21 10/20/20 18 10/20/2018 urina lysis , dipst ick clarity HAZY Not Available [facility] (Outpatient) [address] [place], [address], 10/20/2018 23:10:21 10/20/20 18 10/20/2018 urina lysis , dipst ick glucose Negati ve negati ve Not Available [facility] (Outpatient) [address] [place], [address], 10/20/2018 23:10:21 10/20/20 18 10/20/2018 urina lysis , dipst ick bili Negati ve negati ve Not Available [facility] (Outpatient) [address] [place], [address], 10/20/2018 23:10:21 10/20/20 18 10/20/2018 urina lysis , dipst ick ketones Negati ve negati ve Not Available [facility] (Outpatient) [address] [place], [address], 10/20/2018 23:10:21 10/20/20 18 10/20/2018 urina lysis , dipst ick specific gravity 1.010 1.005- 1.030 Not Available [facility] (Outpatient) [address] [place], [address], 10/20/2018 23:10:21 10/20/20 18 10/20/2018 urina lysis , dipst ick blood Negati ve negati ve Not Available [facility] (Outpatient) [address] [place], [address], 10/20/2018 23:10:21 10/20/20 18 10/20/2018 urina lysis , dipst ick pH 6.0 5.0-8. 0 Not Available [facility] (Outpatient) [address] [place], [address], 10/20/2018 23:10:21 10/20/20 18 10/20/2018 urina lysis , dipst ick protein Negati ve negati ve Not Available [facility] (Outpatient) [address] [place], [address], 10/20/2018 23:10:21 10/20/20 18 10/20/2018 urina lysis , dipst ick nitrite Negati ve negati ve Not Available [facility] (Outpatient) [address] [place], [address], 10/20/2018 23:10:21 10/20/20 18 10/20/2018 urina lysis , dipst ick leukocyte esterase, ur 1+ negati ve abnormal Not Available [facility] (Outpatient) [address] [place], [address], 10/20/2018 23:10:21 10/20/20 18 10/20/2018 urine sedim ent WBC 21-49 /hpf none seen abnormal Not Available [facility] (Outpatient) [address] [place], [address], 10/20/2018 23:25:12 10/20/20 18 10/20/2018 urine sedim ent RBC 0-2 /hpf none seen abnormal Not Available [facility] (Outpatient) [address] [place], [address], 10/20/2018 23:25:12 10/20/20 18 10/20/2018 urine sedim ent urine epithelial 21-49 none seen abnormal Not Available [facility] (Outpatient) [address] [place], [address], 10/20/2018 23:25:12 10/20/20 18 10/20/2018 urine sedim ent mucus 1+ /hpf none seen abnormal Not Available [facility] (Outpatient) [address] [place], [address], 10/20/2018 23:25:12 10/20/20 18 10/20/2018 urine sedim ent bacteria 1+ none seen abnormal Not Available [facility] (Outpatient) [address] [place], [address], 10/20/2018 23:25:12 10/20/20 18 10/21/2018 lab add on contact information X [phone] Not Available [facility] (Outpatient) [address] [place], [address], 10/21/2018 00:24:11 10/20/20 18 10/21/2018 lab add on test requested URINE CULTUR E Not Available [facility] (Outpatient) [address] [place], [address], 10/21/2018 00:24:11 10/20/20 18 10/21/2018 lab add on status ADD ON COMPLE TE. Not Available [facility] (Outpatient) [address] [place], [address], 10/21/2018 00:24:11 10/20/20 18 10/22/2018 cultu re, urine specimen description URINE Not Available [facility] (Outpatient) [address] [place], [address], 10/22/2018 08:56:52 10/20/20 18 10/22/2018 cultu re, urine special requests None Not Available [facility] (Outpatient) [address] [place], [address], 10/22/2018 08:56:52 10/20/20 18 10/22/2018 cultu re, urine gram stain NO ORGANI SMS SEEN Not Available [facility] (Outpatient) [address] [place], [address], 10/22/2018 08:56:52 10/20/20 18 10/22/2018 cultu re, urine culture / test abnormal >100, 000 colon y formi ng units per ml MIXED KAYY (3 OR MORE COLON Y TYPES ) Cultu re indic ates conta minat ion. Pleas e resub jordyn if neces keven. Not Available [facility] (Outpatient) [address] [place], [address], 10/22/2018 08:56:52 10/20/20 18 10/22/2018 cultu re, urine report status 2017 FINAL Not Available [facility] (Outpatient) [address] [place], [address], 10/22/2018 08:56:52 10/21/20 18 10/21/2018 chlam ydia trach omati s and neiss eria gonor rhoea e nucle ic acid chlamydia trachomatis Not Detect ed not detect ed Not Available [facility] (Outpatient) [address] [place], [address], 10/21/2018 10:20:25 10/21/20 18 10/21/2018 chlam ydia trach omati s and neiss eria gonor rhoea e nucle ic acid neiseria gonorrhoeae Not Detect ed not detect ed Not Available [facility] (Outpatient) [address] [place], [address], 10/21/2018 10:20:25 10/21/20 18 10/21/2018 chlam ydia trach omati s and neiss eria gonor rhoea e nucle ic acid specimen type ROUTIN E UNIT COLLEC T (Epic priori ty) Not Available [facility] (Outpatient) [address] [facility], [place], [address], 10/21/2018 10:20:25 07/09/20 18 07/09/2018 US OB pregn ant uteru s trans vagin al ultra sound INDICA TION: Uncert ain dates Exam Date: Last Menstr ual Period : 2017 Ultras ound Age: (09)w( 04)d Gestat ional Age by LMP: (08)w( 06)d Estima brandyn Delive ry by Ultras ound Age: February 07, 2019 Estima brandyn Delive ry Date: 2018 DESCRI PTION: Yolk Sac: Seen Gestat ional Sac: Seen Cardia c Activi ty: Seen Embryo : Seen Number : 1 Gestat ional Sac Locati on: Fundal Cul de Sac Fluid: None FIRST TRIMES TER SCAN: Single ton Biomet ry: [place] Rump Length : 27 mm 9w4d Had[place] k Yolk Sac: 5.1 mm Heart Rate: 174 bpm MATERN AL STRUCT URES: Cervic al Length : 5.29 cm Right Ovary Volume : 3.68 ml Contai ns a simple appear ing cyst with no increa sed vascul arity noted. No adnexa l masses seen. Length : 2.47 cm Height : 1.49 cm Width: 1.91 cm Cyst Simple Length : 1.56 cm Height : 0.952 cm Width: 1.10 cm Left Ovary Volume : 5.00 ml Appear s unrema rkable . No adnexa l masses seen. Length : 2.89 cm Height : 1.43 cm Width: 2.31 cm TECH COMMEN TS: Single live iup. Size > Dates by 5 days. Yolk sac appear s unrema rkable . The cervix is long and closed . No free fluid seen. Transa bdomin al scanni ng was perfor med. IMPRES ANDREA: Single live IUP measur ing 5 days greate r than expect ed by LMP. Electr onical ly Signed by: Yefri Bonilla on 018 7:25 PM Interp reted by: Yefri Bonilla MD Signed by: Yefri Bonilla MD 8 Final result ERIN TAVAREZ FRACISCO [email or web address] [facility] [address] [facility], [place], [address], 07/10/2018 12:21:03 09/26/20 18 09/25/2018 US OB great er than or equal to 14 weeks anato mical compl ete surve y INDICA TION: survey Exam Date: 018 4:38 PM Last Menstr ual Period : 2017 Ultras ound Age: (20)w( 04)d Gestat ional Age by LMP: (20)w( 00)d Estima brandyn Delive ry by Ultras ound Age: February 08, 2019 Estima brandyn Delive ry Date: 2018 ANATOM Y SCAN: Bipari etal Diamet er: 4.58 cm 19w6d 43% [place] Head Circum ferenc e: 17.65 cm 20w1d 49% [place] Abdomi nal Circum ferenc e: 16.52 cm 21w4d 89% [place] Femur Length : 3.31 cm 20w3d 55% [place] k Latera l Ventri austin: 0.48 cm Cerebe llum: 2.12 cm 21w3d 82% Chitty Cister na Magna: 0.50 cm Humeru s: 3.33 cm 21w2d 86% Desmond Nuchal Fold: 0.44 mm HC/AC Ratio: 1.07 FL/BPD Ratio: 72% FL/AC Ratio: 20 % Estima brandyn Weight : 14 oz 384 grams 78% [place] k Heart Activi ty: Presen t Heart Rate: 139 bpm Presen tation : Breech Amniot ic Fluid: Normal Placen ta: Fur Repair Inspector ior Placen edilma Grade: 2 Cord: 3 Vessel Cord Cervic al Length : 4.09 cm. ANATOM Y: Cerebe llum: Seen Cister na Magna: Seen Cavum Septum Pelluc idum: Seen Latera l Ventri austin: Ductal Arch: Seen Seen Face: Seen Orbits /Lense s: Seen Profil e: Seen Nose/L ips: Seen Spine: slight ly limite d by positi on Stomac h: Seen Cord Insert ion: Seen Diaphr agm: Seen Placen edilma Cord Insert ion: Seen Bladde r: Seen Kidney s: Seen LVOT: Seen 4 Chambe r Heart: Seen Aortic Arch: Seen RVOT: Seen Lower Extrem ities: Seen Upper Extrem ities: Seen Gender : Female TECH COMMEN TS: Single active Breech fetus. Growth is at the 78%. The anatom y is unrema rkable , slight ly limite d spine views due to poor positi on. The cervix is long and closed . Transa bdomin al scanni ng was perfor med. IMPRES ANDREA: 1. Single live IUP with above dating criter ia. 2. Visual ized anatom y appear s normal . Spinal views were somewh at limite d. No anomal ies are suspec brandyn but consid er follow -up sonogr am in two weeks to re-jimmy luromeo. Electr onical ly Signed by: Yefri Bonilla on 018 4:55 PM Interp reted by: Yefri Bonilla MD Signed by: Yefri Bonilla MD 8 Final result ERIN YAP [facility] [address] [place], [address], 09/30/2018 18:04:22 Result Notes None recorded. Problems Name Problem SNOMED Code Status Onset Date Resolution Date Notes Provider Name and Address Organization Details Recorded Time Major depressive disorder 317015825 Active Elizabeth Najera PA-C [address] [place], [place] [id number], [address], [facility] 4 12:23:50 Candidiasis of vagina 34274222 Active 2015 AKOSUA Yun [address] [place], [place] [address], [address], [facility] 6 10:51:04 Problem Notes None recorded. Procedures Surgical History Date Name Laterality Status Provider Name and Address Organization Details Recorded Time 12/26/19 17 Smoking cessation counseling completed Kareem Sanchez [facility] 12/26/2016 16:38:42 12/26/19 17 Carbon Monoxide Testing completed Kareem Sanchez [facility] 12/26/2016 16:41:38 11/15/20 16 Smoking cessation counseling completed Karley Barbour [employer] [facility] 10/09/2016 10:19:59 10/04/20 16 Refraction completed Ping Patten OD [address] [place] [address], [phone], [facility] 10/04/2016 13:49:43 09/27/20 16 Smoking cessation counseling completed Karley Barbour [facility] 09/27/2016 14:00:12 09/27/20 16 Carbon Monoxide Testing completed Karley Barbour [facility] 09/27/2016 14:07:07 09/12/20 16 Smoking cessation counseling completed Berenice Galvan [facility] 09/12/2016 17:16:19 09/03/20 16 Smoking cessation counseling completed Giovani Aldana MD [address] [place] [address], [phone], [facility] 09/04/2016 17:14:45 09/03/20 16 Corticosteroid Injection completed Giovani Aldana MD [address] [place] [address], [phone], [facility] 09/04/2016 17:14:40 08/31/20 15 Smoking cessation counseling completed Aleah Woodruff [facility] 08/31/2015 11:49:25 04/22/20 15 Smoking cessation counseling completed Celeste Pulliam [facility] 04/22/2015 13:29:16 10/12/20 14 Smoking cessation counseling completed Anette Mai [facility] 10/12/2014 10:39:07 03/09/20 14 Smoking cessation counseling completed Anette Fernando [facility] 03/09/2014 11:03:12 Imaging Results None recorded. Procedure Notes None recorded. Medical Equipment None Reported. Allergies No known drug allergies Medications Name Sig Start Date Stop Date Status Note LastModified by Organization Details LastModified Time cyclobenz aprine 10 mg tablet Take 1 tablet 3 times a day by oral route as needed. 10/04 completed Not Available Not Available Not Available Mapap Extra Strength 500 mg tablet Take 2 tablets 3 times a day by oral route. 09/12 completed Not Available Not Available Not Available bupropion HCl SR 150 mg tablet,12 hr sustained -release Take 1 tab in morning for 7 days, then increase to 1 tab in AM and 1 tab in PM active Not Available Not Available No t Available doxycycli ne hyclate 100 mg capsule 1 tablet twice a day for a week then decrease to once a day 09/12 completed Not Available Not Available Not Available citalopra m 40 mg tablet Take 1 tablet every day by oral route. 04/22 completed patient stopped taking these almost a year ago Not Available Not Available Not Available azithromy angeli 250 mg tablet Take 2 tablets at once today, then 1 tablet daily x 4 days active Not Available Not Available No t Available ibuprofen 800 mg tablet TAKE 1 TABLET BY MOUTH 3 TIMES A DAY active Not Available Not Available No t Available citalopra m 10 mg tablet Take 1 tablet every day by oral route at bedtime. 03/09 completed Not Available Not Available Not Available hydrocodo ne 5 mg-acetam inophen 325 mg tablet active Not Available Not Available Not Available prednison e 20 mg tablet Take 1 tablet twice a day by oral route for 5 days. 09/27 completed Not Available Not Available Not Available Diflucan 150 mg tablet TAke 1 tablet today, if no relief in 3 days, take a second tablet please 12/26 completed Not Available Not Available Not Available penicilli n V potassium 500 mg tablet Take 1 tablet 4 times a day by oral route for 10 days. 02/04 completed Not Available Not Available Not Available ketorolac 30 mg/mL (1 mL) injection solution Inject 2 mL as needed by intramus cular route as needed. 2014 active Not Available Not Available Not Avai lable oxycodone -acetamin ophen 5 mg-325 mg tablet active Not Available Not Available Not Available citalopra m 20 mg tablet Take 1.5 tablets every day by oral route for 30 days. 09/12 completed Not Available Not Available Not Available Metrogel Vaginal 0.75 % (37.5 mg/5 gram) Insert 1 applicat orful every day by vaginal route at bedtime for 5 days. 12/22 completed Not Available Not Available Not Available diazepam 2 mg tablet 09/12 completed Not Available Not Available Not Available ketorolac 60 mg/2 mL intramusc ular solution 2 ml given by injectio n Route 2013 active Pt Tolerate injectio n well Not Available Not Available Not Available Phenergan 25 mg/mL injection solution 1 ML Given by injectio n route. 2013 active Not Available Not Available Not Avai lable cyclobenz aprine 5 mg tablet Take 1 tablet 3 times a day by oral route. 09/12 completed Not Available Not Available Not Available calcium 600 mg (as carbonate )-vitamin D3 10 mcg (400 unit) tablet Take 1 tablet every day by oral route for 30 days. 09/12 completed Not Available Not Available Not Available Calcium 500 + D 500 mg-10 mcg (400 unit) tablet Take 1 tablet twice a day by oral route. 2013 active Not Available Not Available Not Avai lable calcium 600 mg (as carbonate )-vitamin D3 20 mcg (800 unit) tablet 09/12 completed Not Available Not Available Not Available Vitals Date Recorded Body height Body weight Body mass index (BMI) Oxygen saturation Oxygen saturation in Arterial blood by Pulse oximetry Heart rate Body temperature Systolic blood pressure Diastolic blood pressure Provider Name and Address Organization Details Last Updated DateTime 7 157.48 cm 59823.2 9 g 36.2 kg/m2 98 % 98 % 99 /min 98.1 [degF] 108 mm[Hg] 76 mm[Hg] Messiab Sanchez [facility] 7 16:42:58 Date Recorded Body height Body weight Body mass index (BMI) Oxygen saturation Oxygen saturation in Arterial blood by Pulse oximetry Heart rate Body temperature Systolic blood pressure Diastolic blood pressure Provider Name and Address Organization Details Last Updated DateTime 6 157.48 cm 89349.2 2 g 33.1 kg/m2 98 % 98 % 98 /min 98.6 [degF] 122 mm[Hg] 70 mm[Hg] Berenice Galvan [facility] 6 17:17:03 Date Recorded Body height Body weight Body mass index (BMI) Heart rate Systolic blood pressure Diastolic blood pressure Provider Name and Address Organization Details Last Updated DateTime 6 157.48 cm 71565.7 7 g 34.4 kg/m2 120 /min 108 mm[Hg] 74 mm[Hg] Karley Barbour LPN [facility] 6 14:01:52 Date Recorded Body height Body weight Body mass index (BMI) Heart rate Systolic blood pressure Diastolic blood pressure Provider Name and Address Organization Details Last Updated DateTime 6 157.48 cm 40252.5 5 g 34.8 kg/m2 72 /min 110 mm[Hg] 80 mm[Hg] Karley Barbour LPN [facility] 6 10:21:24 Social History Question Answer Notes LastModified by 7 [employer] [facility] [facility] Details LastModified Time Tobacco Smoking Status Current Every Day Smoker 1 pack every 3 days currently out of C0 09/12/16 Vernell Dias LPN [facility] 10/05/2013 16:14:05 What Is Your Level Of Caffeine Consumption? Heavy [email or web address] Information not available 10/05/2013 What Type Of Diet Are You Following? REGULAR [email or web address] Information not available 10/05/2013 Are There Any Guns Present In Your Home? No [email or web address] Information not available 10/05/2013 Live Alone Or With Others? With Others Lives With 3 Children [email or web address] Information not available 10/05/2013 Marital Status Single Has BF Information not available 12/07/2013 Mosquito Repellent Used Routinely Yes [email or web address] Information not available 10/05/2013 How Many Children Do You Have? 3 [email or web address] Information not available 10/05/2013 Seat Belts Used Routinely Yes [email or web address] Information not available 10/05/2013 Are You Sexually Active? Yes Information not available 12/07/2013 Smoke Alarm In Home Yes [email or web address] Information not available 10/05/2013 Do You Use Sunscreen Routinely? Yes [email or web address] Information not available 10/05/2013 Sex: Unknown Functional Status Question Answer Note LastModified by Organizat ion Details LastModified Time What is your level of alcohol consumption? None [email or web address] Information not available 04/22/2015 What is your occupation? stay at home mom [email or web address] Information not available 10/05/2013 Mental Status None recorded. Family History Relationship Description Onset Age of this Age Resolved Age Notes LastModified by Organization Details LastModified Time Mother Alcoholism [email or web address] Not avail able 10/09/2016 10:42:26 Mother Family history of Drug dependency [email or web address] Not available 09/25 10:43:01 Father Family history of Drug dependency clean since 2002 - on suboxo ne [place] Not available 10/09/2016 10:43:35 Maternal Grandmother Tobacco dependence syndrome [email or web address] Not available 10/09 10:43:45 Maternal Grandmother Anemia she refuse d blood transf usion - [place] Not available 10/09/2016 10:44:09 Maternal Grandmother Diabetes mellitus ndou[place]ay Not available 10/09 10:44:20 Notes:Maternal grandmother-s troke, diabetes, high cholesterol Mother- alcoholic, substance abuse older sister has thyroid disease brother -epileptic father's side not well known, broken relationship with her mother Medical History Condition Response Migraine Headaches Y Gynecological History Statement/Question Response HPV Y Hysterectomy N History of Abnormal Pap Y Current Control Method Condoms Obstetrics History GPAL:G 0 P 0 0 0 0 Immunizations Vaccine Type Date Status Note Provider Nam e and Address Organization Details Recorded Time Influenza, split virus, trivalent, PF 4 completed Not Available [facility] 12/12/2019 02:31:43 Td (adult), 5 Lf tetanus toxoid, preservative free, adsorbed 4 completed Not Available [facility] 12/12/2019 02:17:01 Influenza, split virus, quadrivalent, PF 5 completed Not Available [facility] 12/12/2019 02:19:49 Influenza, split virus, quadrivalent, PF 6 completed Not Available [facility] 12/12/2019 02:21:07 Past Encounters Encounter ID Performer Location Encounter Start Date Encounter Closed Date Diagnosis/Indication Diagnosis SNOMED-CT Code Diagnosis ICD10 Code Diagnosis Note [id number] Giovani Aldana MD , [facility] [place] OFFICE [address] [place] [address] 10/05/2013 15:44:29 10/05/2013 16:47:06 Migraine 27759489 Tension-type headache 539645531 Irregular periods 73494111 [id number] Suhail Gamboa i, PT Physical Therapy, [facility] [place] [address] [place] [address] 10/13/2013 11:24:45 10/14/2013 08:30:34 Headache 66173229 Neck pain 33654988 [id number] Elizabeth Najera PA-C , [facility] [place], OFFICE [address] [place] [address] 12/07/2013 10:39:17 12/07/2013 12:04:53 Adult health examination 041731665 Smoking cessation encouraged . Once she is feeling less depressed she feels it may be a better time to get serious about smoking cessation see Risk Assessment and Lifestyle Change Counseling section above Counseling 375160362 Influenza vaccine needed [id number] 106 Screening for malignant neoplasm of cervix 572403190 Major depr essive disorder 310170028 She is starting to see a [facility]. Trial of medication . Citlaopram 10mg at hs. Discussed side effects and medication use. follow up in a month or sooner if needed [id number] Giovani Aldana MD , [facility] [place], OFFICE [address] [place] [address] 01/25/2014 10:12:18 01/25/2014 11:05:17 Major depressive disorder 382588464 She is seeing a therapist [facility]/f amily struggles. Increase citalopram to 20mg at hs. She will see how this dosing goes and follow up if she feels she needs further adjustment . She has a lot of stressors within the home but is working on them and is handling them better with treatment. Broken too th with complication [id number] Encouraged dental visit--she was directed to call her insurance for coverage locations. Proper oral hygiene. Tylenol or ibuprofen for pain. Pain of hip region 10710017 [id number] Suhail Gamboa i, PT Physical Therapy, [address] [address] 02/03/2014 09:40:03 02/04/2014 11:14:24 Pain of hip region 41744560 Knee pain 00925275 [id number] Suhail Gamboa i, PT Physical Therapy, [address] [address] 02/11/2014 11:57:42 02/12/2014 09:49:28 Pain of hip region [id number] Knee pain [id number] Suhail Gamboa i, PT Physical Therapy, [address] [address] 02/23/2014 15:31:07 02/24/2014 09:02:26 Pain of hip region 80974312 Knee pain [id number] Giovani Aldana MD , [facility] [place] [address] [place] [address] 03/09/2014 10:36:37 03/09/2014 11:46:03 Administration of diphtheria and tetanus vaccine [id number] Migraine 76886157 Stay hydrated, rest in a quiet, dark space. Toradol 60mg IM and phenergan 25mg IM. She will take the bus home. Major depr essive disorder [id number] She is seeing a therapist through [facility] [employer]--relat ed with her children/f amily struggles. Increase citalopram to 40mg at hs. She has a lot of stressors within the home but is working on them and is handling them better with treatment. [id number] Giovani Aldana MD , [facility] [place], [place] [address] [place] [address] 09/02/2014 11:57:28 09/03/2014 08:14:05 Contusion of multiple sites 293026552 moist heat, gentle stretching . It might take a week or 2 to feel back to herself. No sign of concussion today. Stay hydrated. Has vicodin form ER. Follow up if symptoms persist or worse. Has PT exercises for shoulder at home. Sling for left arm because it feels better when resting elevated and supported. [id number] Giovani Aldana MD , [facility] [place], [place] [address] [place] [address] 10/12/2014 10:32:25 10/12/2014 11:00:44 Migraine 57982589 Stay hydrated, rest in a quiet, dark space. Toradol 60mg IM and phenergan 25mg IM. She will take the bus home. Ankle pain 944765820 lik nico unnoticed s/s Rx for splint given' rationale discussed , to enable muscular rest-w pt and inattentiv e BF [id number] Elizabeth Najera PA-C , [facility] [place], [address]ICE [address] [place] [address] 11/05/2014 10:59:32 11/05/2014 11:31:53 Muscle spasm of cervical muscle of neck 7051675663 04 moist heat followed by stretching . stretches reviewed. can use Tylenol and ibuprofen together to manage pain. needs to manage muscle spasms in order to mange headaches and migraines. [id number] Giovani Aldana MD , [facility] [place], [place] [address] [place] [address] 04/22/2015 13:18:49 04/22/2015 14:09:53 Muscle spasm of cervical muscle of neck 3527390949 04 moist heat followed by stretching . stretches reviewed. can use Tylenol and ibuprofen together to manage pain. needs to manage muscle spasms in order to mange headaches and migraines. toradol injection today Tobacco user [id number] Mixed anxi ety and depressive disorder 957521079 wants to resume citalopram . went off of it after she got out of a toxic relationsh ip and was doing better. but now is having some anxiety resurface. felt very good on it and wants to get back to it. will resume but at 20mg to start. Family his tory of disorder 871881765 son has galactosem ia- mom was told to get tested because they are not certain where his came form. [id number] Deloris Olvera D.O. , [facility] [place], [place]ICE [address] [place] [address] 08/31/2015 11:31:41 08/31/2015 12:16:57 Mixed anxiety and depressive disorder 309509593 F41.8 wants to increase med. feels it might not be helping with anxiety but overall mood is okay. try increase. if not mitigating anxiety we should plan a reevaluati on Muscle spa sm of cervical muscle of neck 4925620166 04 M62.838 Tobacco user 854785892 Z 72.0 Influenza vaccine needed 2383216016 106 Z28.3 Rosacea 687726968 L71.9 probiotics encouraged . avoid sun. Otalgia 08030234 H92.01 she had a small area of bleeding. she did have itch preceding pain and may have traumatize d the ear canal causing pain. [id number] Giovani Aldana MD , [facility] [place], [address]ICE [address] [place] [address] 09/03/2016 15:52:18 09/03/2016 16:42:11 Sciatica 30739138 M54.32 injected at sciatic notch for likely muscular sciatica, piriformis follow expectantl english asked her to let ne know how she does [id number] Deloris Olvera D.O. , [facility] [place], OFFICE [address] [place] [address] 09/12/2016 17:05:50 09/13/2016 08:54:09 Cigarette smoker 65795949 F17.210 Tobacco user 139519978 Z 72.0 Asthmatic bronchitis 405 921814 J45.909 Costal chondritis 961081 04 M94.0 [id number] Erin Yap MD , [facility] [place], OFFICE [address] [place] [address] 09/27/2016 13:49:04 09/27/2016 14:36:12 Cigarette smoker 06748236 7.210 Wants to stop smoking; discussed various approaches ; will start Wellbutrin , then set a quit date; follow up here in a month to consider increasing dose. Follow up sooner as needed. Tobacco user 707488880 Z 72.0 Amenorrhea 88158830 N91. 2 Serum HC since she feels ; follow up as needed. Surveillan ce of subcutaneous contraceptive implant 103778022 Z30.46 Requests removal of Implanon, would use condoms for contracept ion P. REferred to [employer] [id number] Ping Patten, OD [facility], [facility] [place] [address] [place] [address] 10/04/2016 12:59:42 10/04/2016 14:23:15 Myopia 01408106 H52.13 Migraine 94889213 G43.90 9 No papilledem a OD and OS [id number] Sarah Couch, IP TECHNOLOGY [employer]SACTIONS ATTORNEY-C , [facility] [place], OFFICE [address] [place] [address] 10/09/2016 10:14:21 10/09/2016 10:57:27 Cigarette smoker 89091676 F17.210 she has started the wellbutrin and is very motivated to quit smoking Influenza vaccine needed 7467067746 106 Z23 Candidiasis of vagina 72 421915 B37.3 [id number] Giovani Aldana MD , [facility] [place], OFFICE [address] [place] [address] 12/26/2016 16:28:05 12/26/2016 17:24:14 Acute upper respiratory infection 40766261 J06.9 Due to smoking history will treat with abx. Recommend probiotic supplement while taking abx. No wheezing appreciate d on exam and pt hasn't needed to use albuterol inhaler. Recommende d symptomati c treatments including ibuprofen, semi-uprig ht sleep position, sudafed, mucinex/ro bitussin, and nasal saline rinses with soft squeeze bottle or Neti pot as needed. Return for fevers > 101 for 3 days, worsening sinus pain, or failure to resolve in 2-4 weeks. Cigarette smoker 0867182 7 F17.210 Wants to start wellbutrin again. Had stopped it when unable to pay co-pay. Motivated to quit. Declines group support at this time. Tobacco user 989521410 Z 72.0 Non-cardia c chest pain 266042196 R07.89 Not consistent with cardiac etiology. Likely related to increased life stress. Pt is currently seeing a therapist. Encourage relaxation techniques , deep breathing, and continued therapy. Call back if becomes more persistent or related to exertion. Health Concerns Section Related Observation LastModified by Organization Detai ls LastModified Time None Recorded Concern Status LastModified by Organization Details LastModified Time None Recorded Advance Directives Directive None Recorded Payers Insurance Date Sequence Insurance Name Policy Number Policy Ambrosio Covered Member ID Ambrosio Member ID Guarantor Name 12/22/2024 1 [facility] [place] Adeline Fenton [id number] Nakia Kevin Jossy 12/22/2024 2 [place] [facility] Nakia Rennereron [id number] Nakia Kevin Jossy 12/22/2024 1 [place] [facility] Nakia K Jossy [id number] Nakia K Jossy 12/22/2024 1 [facility]AN (MEDICAID HMO) [id number] Adeline Fenton [id number] Nakia Kevin Jossy 12/22/2024 2 [place] [facility] Nakia Rennereron [id number] Nakia Kevin Jossy 12/22/2024 1 [place] PRIOR TO 2023 - [facility] (MEDICAID) Adeline Fenton [id number] Nakia Fenton Notes Date Note Type Note Provider Name and Address Organization Details Recorded Time 09/12/2016 text/html Patient enters [facility] today for urgent appointment. H/o URI symptoms x 2 weeks. Seen at [facility] and given prednisone for bronchitis. On 09/07/16 she had a severe coughing attack with gasping for breath. Since then has had pain in her left chest, pain in her neck and left shoulder with severe FRIAS. Seen again at [facility] yesterday, told she had pleurisy. Has been taking ibuprofen. Has asthma, uses nebulizer at home and albuterol. Also has a h/o migraines but states this is not like her migraines. Also smokes. Recent stress, of brother. Alise Krishna NP [address] [place] [address], [phone], [facility] 09/12/2016 18:10:55 09/27/2016 text/html a/vmg-smoking [id number] bypatient.Notes:Has had a contraception implant for a year (implanon), now feels (bloating, wt gain), wants a test. Wants the implant out. Is with a stable partner, and feels that if she did become it would be OK. She would also like to discuss smoking cessation; smokes about half a pack a day, not first thing in the morning, has tried to stop before without success. Has a stressful life and would like to try an antidepressant that also would help her stop smoking, which has helped her friend. Erin Yap MD [address] [place] [address], [phone], [facility] 09/27/2016 16:29:08 10/04/2016 text/html Comprehensive Ey e ExamReported bypatient.Quality:2 year exam; no blurred vision Associated Symptoms:no redness; no itching; no floaters; no dryness Ping Patten OD [address] [place] [address], [phone], [facility] 10/04/2016 14:21:07 10/09/2016 text/html a/vmg-smoking [id number] bypatient.ImportanceOn a scale of 1-10 with 1 being not important and 10 being very important the patient rates importance of stopping smoking as 10 ConfidenceOn a scale of 1-10 with 1 being not confident and 10 being very confident the patient rates confidence on stopping smoking as 8 Readiness to quit smokingOn a scale of 1-10 with 1 being not ready and 10 being very ready the patient rates readiness to stop smoking as 10 Physiological Dependence/Health RiskCurrently smoking 10 cigarettes per day; Patient has first cigarette greater than 30 minutes after awakeningNotes:has recently started wellbutrin - she has attempted cold turkey w/o results vaginal itchiness especailly after intercouseher sexual partner does have jock itchno vaginal d/c, no temps/fevers/chillsshe is back together after 2 years and her partner states he is clean Sarah Couch IP TECHNOLOGY [employer]SACTIONS ATTORNEY-C [address] [place] [address], [phone], [facility] 10/09/2016 10:52:50 12/26/2016 text/html VMG URI Flu like SymptomsReported bypatient.Duration:sta rted 3 days ago Severity:moderate; Symptoms are worsening Associated Symptoms:Good oral intake; No significant muscle aches; No sweats; No sore throat; No difficulty swallowing; No abdominal pain; No nausea; No vomiting;fever/chills; Fatigue and malaise;Headache; Headache pain scale 8/10;Purulent Nasal Discharge;frontal sinus pressure;Cough productive of yellow-green, thick sputum;Wheezing;Swolle n glands;Chest pain with deep breath Context:No foreign travel; Smoker Modifying factors:Had seasonal flu immunization this yeara/vmg-smoking [id number] bypatient.Notes:Wants to quit, but increased stress has her smoking more recently. Pt c/o nasal congestion, sinus pressure, FRIAS, productive cough, chest congestion, occasional chest pain with coughing or at rest since 12/22. Wheezing with going up stairs, cleaning; reports some asthma at baseline but hasn't needed to use albuterol in years. Nasal congestion worse at night. Denies ear pain, sore throat. Has anxiety, lots of stress in life lately. Seems to relate to occasional chest pain. No exertional, very transient. L hip pain s/p fall 3 weeks ago. Painful to touch mainly. No limitation to walking. Giovani Aldana MD [address] [place] [address], [phone], [facility] 12/26/2016 17:37:42 OBGyn Episode No OBEpisode recorded.
== END 2025-05-11 11:45 | disposition home or self-care (01) ==
PROVIDERS: Physician Assistant Medical; Emergency Provider Emergency Medicine
DX: J32.9 Chronic sinusitis, unspecified (principal); J02.9 Acute pharyngitis, unspecified; R05.9 Cough, unspecified; Z03.818 Encounter for observation for suspected exposure to other biological agents ruled out
CPT/HCPCS: 0241U; 71046; 87651; 99283; 99284

== ENCOUNTER → 2025-05-11 10:39 | Outpatient (BNV) | payer MEDICAID, SELFPAY | PROVIDERS: Visit Provider Radiology Diagnostic Radiology | DX: R05.9 Cough, unspecified (principal) | CPT/HCPCS: 71046 ==